=== PATIENT | female | born 1930 | race Caucasian/White ===

== ENCOUNTER 2016-12-26 14:18 | Emergency (ER) | payer OTHER, MEDICARE ==
[~2016-12-26] VITALS: Ht 152.4 cm; Wt 47.0 kg
[~2016-12-26 14:18] MED LIST: BISM262C5 PO; CALC-51 PO; DRAMAMINE PO; GLC/500 PO; IBUP-103 PO; IMD/2 PO; LEVO100T PO; LEVO1TAB33 PO; LISI-461 PO; MULT-506 PO; SIMV40TA4 PO; TRAM-10 PO; TRAZ50TA35 PO; VITAMIN B12 PO; VITAMIN D PO; iron PO
[2016-12-26 14:28] VITALS: TEMP 36.9; O2SAT 95; Ht 152.4 cm; Wt 47.0 kg
[2016-12-26] MEDS ORDERED: ONDANSETRON INJ 2 MG/ML 2 ML VIAL IV STA (14:40)
[2016-12-26] MEDS ORDERED: SODIUM CHLORIDE 0.9% 500ML 500 ML IV STA (14:43)
--- NOTE | 2016-12-26 14:48 | EMERGENCY ROOM VISIT NOTE ---
History Report prepared by Jourdan: Alison Castro Under the Supervision of: Jones GusmanO. First contact with patient: 14:36 Chief Complaint: DIZZY Stated Complaint: WEAK/DIZZY History of Present Illness The patient is a 86 year old female who presents to the Emergency Room with complaints of dizziness. The patient has had intermittent symptoms for the last year. She has seen her primary care physician for this in the past. She's tried taking meclizine but cannot tolerate it anymore and listed as an allergy. She states her symptoms are worsened with any ambulation and feels as though she is falling to the side. She denies having any shortness of breath but does state that at times she does have exertional chest pain. She has not told her doctor this. She was started on cough medicine and states that it does not work anymore although at this time she denies having any cough symptoms. She denies any swelling in the legs. She does complain of a headache which is diffuse and is moderate. She states she has no headache at this time and did not take any medicines for this. She denies having any falls or any injuries. She lives at home alone and called EMS to bring her to the emergency department because of weakness and dizziness. She denies having any dysuria or frequency. She's not had a recent fever. Source of History: patient Position: other (global) Quality: other (dizziness) Timing: intermittent Modifying Factors (Worsening): other (ambulation) Associated Symptoms: + chest pain, + headache, + weakness, No SOB, No cough , No fevers Review of Systems See HPI for pertinent positives & negatives. A total of 10 systems reviewed and were otherwise negative. Past Medical & Surgical Medical Problems: (1) Asthma, Unspecified (2) Cataract Nos (3) Diverticulosis Colon (W/O Ment Of Hemorrhage) (4) Hypertension Nos (5) Old Myocardial Infarct (6) Osteoporosis Nos (7) Postsurgical Hypothyroid Family History Patient reports no known family medical history. Social History Smoking Status: Never Smoker Alcohol Use: none Drug Use: none Marital Status: Housing Status: lives alone Occupation Status: unemployed Current/Historical Medications Scheduled Aspirin Enteric Coated (Ecotrin Or Generic), 81 MG PO QAM Cephalexin Monohydrate (Keflex), 500 MG PO QID Cholecalciferol (Vitamin D 1000 Unit), 1,000 INTER.UNIT PO DAILY Cyanocobalamin (Vitamin B-12), 500 MCG PO DAILY Levothyroxine Sodium (Synthroid), 125 MCG PO DAILY Lisinopril (Zestril), 10 MG PO QAM Metformin Hcl Er (Glucophage Er), 500 MG PO QPM Multivitamin (Multivitamin), 1 TAB PO QAM Omeprazole (Prilosec), 20 MG PO QAM Simvastatin (Simvastatin), 20 MG PO QPM Tramadol HCl (Tramadol HCl), 50 MG PO QID Trazodone Hcl (Trazodone), 100 MG PO DAILY Vitamin E (Vitamin E), 1 TAB PO DAILY Scheduled PRN Phenazopyridine HCl (Phenazopyridine HCl), 200 MG PO TID PRN for Bladder pain Triamcinolone Acet (Triamcinolone Acetonide), 1 APPLN TOP TID PRN for RASH Miscellaneous Medications Ferrous Sulfate (Iron), 1 TAB Allergies Coded Allergies: Sulfamethoxazole w/Trimethoprim (Verified Allergy, Severe, ANAPHYLAXIS, 05/03/16) lips swell Aluminum Hydroxide (Verified Allergy, Unknown, UNKNOWN, 12/26/16) Calcium Carbonate (Verified Allergy, Unknown, UNKNOWN, 12/26/16) INFO FROM [facility] Gabapentin (Verified Allergy, Unknown, UNKNOWN, 12/26/16) INFO FROM [facility] Magnesium Hydroxide (Verified Allergy, Unknown, UNKNOWN, 12/26/16) Propoxyphene (Verified Allergy, Unknown, UNKNOWN, 05/03/16) Simethicone (Verified Allergy, Unknown, UNKNOWN, 12/26/16) Famotidine (Verified Adverse Reaction, Severe, GI SYMPTOMS, 05/03/16) diarrhea Sertraline (Verified Adverse Reaction, Severe, SHORTNESS OF BREATH, 05/03/16 ) no sob,causes dizziness Meclizine (Verified Adverse Reaction, Intermediate, SHORTNESS OF BREATH, ) increased fatigue, no sob Ranitidine (Verified Adverse Reaction, Intermediate, GI SYMPTOMS, 05/03/16) constipated Sulfamethoxazole (Verified Adverse Reaction, Intermediate, SWOLLEN LIPS, PRURITIS, 05/03/16) SWOLLEN LIPS, SLIGHT PRURITIS. See ADR documentation. Verapamil (Verified Adverse Reaction, Intermediate, SHORTNESS OF BREATH, ) no sob,has headaches Albuterol (Verified Adverse Reaction, Mild, SHORTNESS OF BREATH, 05/03/16) no sob, causes cough Alendronate (Verified Adverse Reaction, Mild, UPSET STOMACH, 05/03/16) UPSET STOMACH Ipratropium (Verified Adverse Reaction, Mild, SHORTNESS OF BREATH, 05/03/16) no sob, causes cough Lecithin (Verified Adverse Reaction, Mild, SHORTNESS OF BREATH, 05/03/16) no sob, causes cough Physical Exam Vital Signs Date Time Temp Pulse Resp B/P Pulse Ox O2 Delivery O2 Flow Rate FiO2 12/26/16 17:48 102 18 130/95 98 Room Air 12/26/16 16:28 90 20 138/82 98 12/26/16 15:11 95 18 139/91 100 Room Air 12/26/16 14:56 90 120/76 99 126/68 105 143/71 12/26/16 14:28 96 Room Air 12/26/16 14:28 95 Room Air 12/26/16 14:28 36.9 102 18 149/67 95 Room Air 12/26/16 14:26 127 Physical Exam GENERAL: Patient is awake and alert. She is comfortable and does not appear to be in pain. EYES: The conjunctivae are clear. The pupils are round and reactive. No nystatin this was noted. EARS, NOSE, MOUTH AND THROAT: The nose is without any evidence of any deformity. Mucous membranes are moist tongue is midline NECK: The neck is nontender and supple. RESPIRATORY: Normal respiratory effort is noted there is no evidence of wheezing rhonchi or rales CARDIOVASCULAR: Tachycardic rate with regular rhythm was noted. No definite murmurs noted. GASTROINTESTINAL: The abdomen is soft. Bowel sounds are present in all quadrants. Abdomen is nontender MUSCULOSKELETAL/EXTREMITIES: There is no evidence of gross deformity full range of motion is noted in the hips and shoulders SKIN: There is no obvious evidence of any rash. There are no petechiae, pallor or cyanosis noted. NEUROLOGIC: Patient is awake alert and oriented x3. Strength is symmetric. Patellar tendon reflexes 1 plus bilaterally. Medical Decision & Procedures ER Provider Diagnostic Interpretation: X ray results and stated below per my interpretation and radiology interpretation. CT results per my review and radiologist interpretation: CHEST ONE VIEW PORTABLE HISTORY: EVALUATE ALTERED MENTAL STATUS/WEAKNESS COMPARISON: Chest 05/03/2016. FINDINGS: The lungs are clear. Cardiac silhouette is normal in size. No pleural effusions. No pneumothorax. Mild emphysema persists. IMPRESSION: No significant change compared to the prior study. No acute process. Electronically signed by: Ramos Smith M.D. 12/26/2016 3:01 PM Dictated Date/Time: 12/26/2016 2:[address] CT DOSE: 537.48 mGy.cm HISTORY: EVALUATE ALTERED MENTAL STATUS/WEAKNESS TECHNIQUE: Multiaxial CT images of the head were performed without the use of intravenous contrast. Automated exposure control was utilized for this study. Comparison: Head CT 01/03/2015. Findings: The paranasal sinuses and mastoid air cells are clear. The calvarium and skull base are intact. There is no mass, hematoma, midline shift, acute infarct. White matter hypodensity is nonspecific but suggestive of microvascular ischemic change. The ventricles and sulci demonstrate mild age-related involutional changes. Old postoperative changes within the left mastoid. Vascular calcifications at the skull base. Impression: No significant change compared to the prior study. No acute intracranial abnormality. Electronically signed by: Ramos Smith M.D. 12/26/2016 3:57 PM Dictated Date/Time: 12/26/2016 3:37 PM Laboratory Results 12/26/16 13:30 Red Blood Count 4.94, Mean Corpuscular Volume 88.9, Mean Corpuscular Hemoglobin 28.5, Mean Corpuscular Hemoglobin Concent 32.1, Mean Platelet Volume 9.2, Neutrophils (%) (Auto) 71.1, Lymphocytes (%) (Auto) 21.0, Monocytes (%) (Auto) 6.9, Eosinophils (%) (Auto) 0.6, Basophils (%) (Auto) 0.2, Neutrophils # (Auto) 8.61, Lymphocytes # (Auto) 2.54, Monocytes # (Auto) 0.83, Eosinophils # (Auto) 0.07, Basophils # (Auto) 0.02 12/26/16 13:30 Test 12/26/16 13:30 12/26/16 15:10 White Blood Count 12.10 K/uL (4.8-10.8) Red Blood Count 4.94 M/uL (4.2-5.4) Hemoglobin 14.1 g/dL (12.0-16.0) Hematocrit 43.9 % (37-47) Mean Corpuscular Volume 88.9 fL (80-100) Mean Corpuscular Hemoglobin 28.5 pg (25-34) Mean Corpuscular Hemoglobin Concent 32.1 g/dl (32-36) Platelet Count 255 K/uL (130-400) Mean Platelet Volume 9.2 fL (7.4-10.4) Neutrophils (%) (Auto) 71.1 % Lymphocytes (%) (Auto) 21.0 % Monocytes (%) (Auto) 6.9 % Eosinophils (%) (Auto) 0.6 % Basophils (%) (Auto) 0.2 % Neutrophils # (Auto) 8.61 K/uL (1.4-6.5) Lymphocytes # (Auto) 2.54 K/uL (1.2-3.4) Monocytes # (Auto) 0.83 K/uL (0.11-0.59) Eosinophils # (Auto) 0.07 K/uL (0-0.5) Basophils # (Auto) 0.02 K/uL (0-0.2) RDW Standard Deviation 49.0 fL (36.4-46.3) RDW Coefficient of Variation 15.1 % (11.5-14.5) Immature Granulocyte % (Auto) 0.2 % Immature Granulocyte # (Auto) 0.03 K/uL (0.00-0.02) Prothrombin Time 10.4 SECONDS (9.0-12.0) Prothromb Time International Ratio 1.0 (0.9-1.1) Activated Partial Thromboplast Time 26.1 SECONDS (21.0-31.0) Partial Thromboplastin Ratio 1.0 Anion Gap 12.0 mmol/L (3-11) Est Creatinine Clear Calc Drug Dose 25.1 ml/min Estimated GFR () 48.1 Estimated GFR (Non- 41.5 BUN/Creatinine Ratio 16.8 (10-20) Calcium Level 9.3 mg/dl (8.5-10.1) Magnesium Level 2.0 mg/dl (1.8-2.4) Total Bilirubin 0.4 mg/dl (0.2-1) Direct Bilirubin < 0.1 mg/dl (0-0.2) Aspartate Amino Transf (AST/SGOT) 8 U/L (15-37) Alanine Aminotransferase (ALT/SGPT) 20 U/L (12-78) Alkaline Phosphatase 81 U/L (45-117) Total Creatine Kinase 48 U/L (26-192) Creatine Kinase MB 2.2 ng/ml (0.5-3.6) Creatine Kinase MB Ratio 4.6 (0-3.0) Troponin I 0.025 ng/ml (0-0.045) Total Protein 7.6 gm/dl (6.4-8.2) Albumin 3.9 gm/dl (3.4-5.0) Thyroid Stimulating Hormone (TSH) 0.616 uIu/ml (0.300-4.500) Urine Color DK YELLOW Urine Appearance CLEAR (CLEAR) Urine pH 6.5 (4.5-7.5) Urine Specific Struthers 1.009 (1.000-1.030) Urine Protein NEG (NEG) Urine Glucose (UA) NEG (NEG) Urine Ketones NEG (NEG) Urine Occult Blood NEG (NEG) Urine Nitrite POS (NEG) Urine Bilirubin NEG (NEG) Urine Urobilinogen NEG (NEG) Urine Leukocyte Esterase LARGE (NEG) Urine WBC (Auto) >30 /hpf (0-5) Urine RBC (Auto) 0-4 /hpf (0-4) Urine Hyaline Casts (Auto) 0 /lpf (0-5) Urine Epithelial Cells (Auto) 5-10 /lpf (0-5) Urine Bacteria (Auto) NEG (NEG) Laboratory results per my review. Medications Administered Medications (Trade) Dose Ordered Sig/Jonathan Route Start Time Stop Time Status Last Admin Dose Admin Ondansetron HCl 4 mg 4 mg NOW STAT IV 12/26/16 14:40 12/26/16 15:19 DC 12/26/16 15:10 4 MG Sodium Chloride (Nss 500ml) 500 ml @ 999 mls/hr Q31M STAT IV 12/26/16 14:43 12/26/16 15:19 DC 12/26/16 15:10 999 MLS/HR Ceftriaxone Sodium (Rocephin Inj) 1 gm NOW STAT IV 12/26/16 15:59 12/26/16 16:00 DC 12/26/16 16:28 1 GM ECG Indication: other (Dizziness) Rate (beats per minute): 109 Rhythm: sinus tachycardia Findings: Q waves (Inferior), no ectopy, other (No acute St segment abnormality ) Comparison ECG Date: January 05, 2015 Change: Rate has increased otherwise no change when compared to December 29, 2014. ED Course 1436: The patient was evaluated in room C01A. A complete history and physical examination were performed. 1440: Zofran Inj 4 mg IV 1443: Sodium Chloride 500 ml @ 999 m;s/hr IV 1559: Rocephin Inj 1 gm IV 1620: Upon reevaluation, the patient is resting comfortably. I discussed the results and treatment plan with her. She verbalized agreement of the treatment plan. She was discharged home. Medical Decision Differential diagnosis: Etiologies such as benign positional vertigo, dehydration, hypovolemia, anemia, tumor, infection, hypoglycemia, electrolyte abnormalities, cardiac sources, intracerebral event, toxicologic, neurologic, as well as others were entertained. Nursing notes reviewed. The patient is an 86-year-old female who presented to the emergency department for an evaluation of dizziness. The patient states he has a history of chronic vertigo. She states this feels similar to her previous episodes of vertigo but she does have a headache today. She also feels weak especially upon standing. I discussed the patient's laboratory and radiographic studies with her. She was treated with IV fluids IV antiemetics and IV antibiotics for presumed urinary tract infection and was noted on urinalysis. I discussed follow-up with the patient. She was feeling much better on subsequent reevaluation he requested to be discharged home. I offered to have the patient evaluated by the hospitalist for possible inpatient management especially given her age and the presence of urinary tract infection. She states that she's been treated successfully as an outpatient for urinary tract infection the past. She was encouraged to call her primary care physician to schedule follow-up appointment. I discussed her case with the emergency Department assistant case manager and they've agreed to try to set the patient up with a follow-up appointment with her primary care physician within the next few days. The patient was encouraged to continue all medications as prescribed. She was also encouraged to rest and avoid any strenuous activity. She was also encouraged to return to emergency department immediately if symptoms change worsen or need arises. Impression Primary Impression: Dizziness Additional Impressions: Vertigo UTI (urinary tract infection) Scribe Attestation The scribe's documentation has been prepared under my direction and personally reviewed by me in its entirety. I confirm that the note above accurately reflects all work, treatment, procedures, and medical decision making performed by me. Departure Information Dispostion Home / Self-Care Prescriptions Cephalexin Monohydrate (KEFLEX) 500 Mg Cap 500 MG PO QID, #28 CAP Prov: SidneyDheeraj, DO 12/26/16 Referrals No Doctor, Assigned (PCP) Bi Josue M.D. Forms HOME CARE DOCUMENTATION FORM, IMPORTANT VISIT INFORMATION Patient Instructions My [facility], Urinary Tract Infecs Women Additional Instructions Continue all medications as prescribed. Drink plenty of clear liquids. Rest and avoid any strenuous activity. Use caution with ambulation. Follow-up with your family this week for reevaluation. Be sure to start the antibiotic that was prescribed for the urinary tract infection. Problem Qualifiers
[2016-12-26 14:57] LABS: BASO % 0.2 %; BASO ABS # 0.02 K/uL (0-0.2); COMPLETE YES; EOS % 0.6 %; HEMATOCRIT 43.9 % (37-47); IG% 0.2 %; LYMPH ABS # 2.54 K/uL (1.2-3.4); MEAN CELL VOLUME 88.9 fL (80-100); MEAN CORPUSCULAR HEMOGLOBIN 28.5 pg (25-34); MEAN CORPUSCULAR HGB CONC 32.1 g/dl (32-36); MEAN PLATELET VOLUME 9.2 fL (7.4-10.4); MONO % 6.9 %; NEUT % 71.1 %; PLATELET COUNT 255 K/uL (130-400); RED BLOOD COUNT 4.94 M/uL (4.2-5.4)
--- NOTE | 2016-12-26 15:02 | DIAGNOSTIC IMAGING REPORT ---
CHEST ONE VIEW PORTABLE HISTORY: EVALUATE ALTERED MENTAL STATUS/WEAKNESS COMPARISON: Chest 05/03/2016. FINDINGS: The lungs are clear. Cardiac silhouette is normal in size. No pleural effusions. No pneumothorax. Mild emphysema persists. IMPRESSION: No significant change compared to the prior study. No acute process. Electronically signed by: Ramos Smith M.D. 12/26/2016 3:01 PM Dictated Date/Time: 12/26/2016 2:59 PM
[2016-12-26 15:08] LABS: PROTHROMBIN TIME (PATIENT) 10.4 SECONDS (9.0-12.0)
[2016-12-26 15:18] LABS: ALT/SGPT 20 U/L (12-78); AST/SGOT 8 U/L (15-37); BLOOD UREA NITROGEN 20 mg/dl (7-18); BUN/CREATININE RATIO 16.8 (10-20); CALCIUM 9.3 mg/dl (8.5-10.1); CARBON DIOXIDE 26 mmol/L (21-32); CHLORIDE 104 mmol/L (98-107); GLUCOSE 166 mg/dl (70-99); POTASSIUM 4.1 mmol/L (3.5-5.1); SODIUM 142 mmol/L (136-145)
[2016-12-26 15:29] LABS: ALKALINE PHOSPHATASE 81 U/L (45-117); CKMB/CK RATIO 4.6 (0-3.0); THYROID STIMULATING HORMONE 0.616 uIu/ml (0.300-4.500)
[2016-12-26 15:32] LABS: URINE APPEARANCE CLEAR (CLEAR); URINE BILIRUBIN NEG (NEG); URINE COLOR DK YELLOW; URINE NITRITE POS (NEG); URINE PH 6.5 (4.5-7.5); URINE SPECIFIC GRAVITY 1.009 (1.000-1.030); UROBILINOGEN NEG (NEG)
[2016-12-26] MEDS ORDERED: PHEN-1043 PO (15:33)
[2016-12-26] MEDS ORDERED: ULT50 PO (15:33)
[2016-12-26] MEDS ORDERED: TRMO115 TOP (15:33)
[2016-12-26] MEDS ORDERED: METF500T5 PO (15:33)
[2016-12-26] MEDS ORDERED: SIMV-151 PO (15:33)
[2016-12-26] MEDS ORDERED: LEVO125T72 PO (15:33)
[2016-12-26] MEDS ORDERED: CYAN500T PO (15:33)
[2016-12-26] MEDS ORDERED: TRAZ100T29 PO (15:33)
[2016-12-26] MEDS ORDERED: CHOL100027 PO (15:33)
[2016-12-26 15:34] LABS: MANUAL MICROSCOPIC REQUIRED? NO; REVIEW REQ? NO
[2016-12-26] MEDS ORDERED: VITA1TAB12 PO (15:35)
[2016-12-26] MEDS ORDERED: FERR1TAB61 PO (15:37)
--- NOTE | 2016-12-26 15:58 | DIAGNOSTIC IMAGING REPORT ---
HEAD CT NONCONTRAST CT DOSE: 537.48 mGy.cm HISTORY: EVALUATE ALTERED MENTAL STATUS/WEAKNESS TECHNIQUE: Multiaxial CT images of the head were performed without the use of intravenous contrast. Automated exposure control was utilized for this study. Comparison: Head CT 01/03/2015. Findings: The paranasal sinuses and mastoid air cells are clear. The calvarium and skull base are intact. There is no mass, hematoma, midline shift, acute infarct. White matter hypodensity is nonspecific but suggestive of microvascular ischemic change. The ventricles and sulci demonstrate mild age-related involutional changes. Old postoperative changes within the left mastoid. Vascular calcifications at the skull base. Impression: No significant change compared to the prior study. No acute intracranial abnormality. Electronically signed by: Ramos Smith M.D. 12/26/2016 3:57 PM Dictated Date/Time: 12/26/2016 3:37 PM
[2016-12-26] MEDS ORDERED: CEFTRIAXONE SOD INJ 1 GM ADDVIAL IV STA (15:59)
[2016-12-26] MEDS ORDERED: CEPH500C2 PO (16:42)
[2016-12-26 17:48] VITALS: BP 130/95; PULSE 102; O2SAT 98
[2016-12-26] MEDS ORDERED: ASPI81TA21 PO (18:31)
[2016-12-26] MEDS ORDERED: OMEP20CA9 PO (18:31)
--- NOTE | 2016-12-28 12:25 | Pharmacy Progress Note ---
ED Pharmacist Culture FollowUp Date of Service: Dec 28, 2016. Patient's urine cx from 12/26/16 is growing corynebacterium sp not urealyticum. She had been dx with UTI in the ER and discharged w/ Rx for Keflex 500mg QID x 7 days. No sensitivities will be reported for this organism. This organism would be an unusual cause of UTI, and may likely represent contamination with skin russell. I did speak to the patient and her sister on the phone today. She did c/o dysuria and frequency today which she states she constantly. Her sister confirms that she has had these symptoms for months and attributes them to poor care of pessary device. She states that the device is not removed as frequently as it should be and is not lubricated well when reinserted. She does see Dr Waleska Chin and will be following up with her at the end of the month. She also has a f/u appt with Dr Hyde on 01/03/17. I reviewed the case with Dr Harry, discussed the possibility that this is skin contamination and current symptoms are not new and may be attributed to inadequate pessary care. Suggested that if we needed to treat this organism, perhaps Doxycycline would offer better chance of coverage than Keflex but this is uncertain as our lab does not report sensitivities. Plan is to continue Keflex and have pt f/u with Dr Hyde as scheduled. Plan was relayed to patient 's sister over phone and suggested that they contact Dr Chin regarding recommendations for pessary care routine.
[2017-03-29] MEDS ORDERED: LSN5 PO (16:08)
[2017-04-04] MEDS ORDERED: TRIM100T20 PO (15:36)
== END 2016-12-26 18:18 | disposition home or self-care (01) ==
LOC: EDBD 14:18 → C.EDC 14:18
DX: R42 Dizziness and giddiness (principal); N39.0 Urinary tract infection, site not specified; I10 Essential (primary) hypertension; E89.0 Postprocedural hypothyroidism; J45.909 Unspecified asthma, uncomplicated; M81.0 Age-related osteoporosis without current pathological fracture; K57.90 Diverticulosis of intestine, part unspecified, without perforation or abscess without bleeding; Z79.82 Long term (current) use of aspirin; Z79.899 Other long term (current) drug therapy; Z79.84 Long term (current) use of oral hypoglycemic drugs; Z88.2 Allergy status to sulfonamides; Z88.8 Allergy status to other drugs, medicaments and biological substances

== ENCOUNTER → 2017-01-03 | Outpatient (CLI) | payer OTHER, MEDICARE ==
[~2017-01-03] MED LIST changes: +ASPI81TA21 PO; -BISM262C5 PO; -CALC-51 PO; +CEPH500C2 PO; +CHOL100027 PO; +CYAN500T PO; -DRAMAMINE PO; +DSY/150 PO; +FERR1TAB61 PO; -GLC/500 PO; -IBUP-103 PO; -IMD/2 PO; -LEVO100T PO; +LEVO125T72 PO; -LEVO1TAB33 PO; +LSN5 PO; +METF500T5 PO; +OMEP20CA9 PO; +PHEN-1043 PO; +SIMV-151 PO; -SIMV40TA4 PO; -TRAM-10 PO; +TRAZ100T29 PO; -TRAZ50TA35 PO; +TRIM100T20 PO; +TRMO115 TOP; +ULT50 PO; +VITA1TAB12 PO; -VITAMIN B12 PO; -VITAMIN D PO; -iron PO
== END | disposition home or self-care (01) ==
LOC: C.LABSPEC 17:15
PROVIDERS: ATTEND Podiatrist Foot & Ankle Surgery
DX: L60.0 Ingrowing nail (principal)

== ENCOUNTER 2017-01-08 12:56 | Emergency (ER) | payer OTHER, MEDICARE ==
[~2017-01-08] VITALS: Ht 152.4 cm; Wt 43.7 kg
[~2017-01-08 12:56] MED LIST changes: -DSY/150 PO; -LSN5 PO; -TRIM100T20 PO
[2017-01-08 13:06] VITALS: TEMP 36.4; Ht 152.4 cm; Wt 43.7 kg
[2017-01-08] MEDS ORDERED: SODIUM CHLORIDE 0.9% 1000ML 1,000 ML IV STA (14:04)
[2017-01-08] MEDS ORDERED: SODIUM CHLORIDE 0.9% 1000ML 500 ML IV STA (14:04)
[2017-01-08] MEDS ORDERED: ONDANSETRON INJ 2 MG/ML 2 ML VIAL IV STA (14:04)
[2017-01-08 14:13] VITALS: O2SAT 97
--- NOTE | 2017-01-08 14:41 | DIAGNOSTIC IMAGING REPORT ---
CHEST ONE VIEW PORTABLE CLINICAL HISTORY: Altered mental status. Weakness. COMPARISON STUDY: Chest radiograph April. FINDINGS: There is no pneumothorax or pleural effusion. There are healed left rib fractures. Pulmonary vascularity is normal. Cardiomediastinal silhouette is stable. Pulmonary vascularity is normal. The appearance of the chest is unchanged. IMPRESSION: No acute cardiopulmonary findings. Electronically signed by: Ruddy Seay M.D. 01/08/2017 2:39 PM Dictated Date/Time: 01/08/2017 2:39 PM
[2017-01-08 15:00] LABS: BASO % 0.2 %; BASO ABS # 0.02 K/uL (0-0.2); COMPLETE YES; EOS % 0.3 %; HEMATOCRIT 41.9 % (37-47); IG% 0.5 %; LYMPH ABS # 2.55 K/uL (1.2-3.4); MEAN CELL VOLUME 86.2 fL (80-100); MEAN CORPUSCULAR HGB CONC 33.7 g/dl (32-36); MEAN PLATELET VOLUME 8.6 fL (7.4-10.4); MONO % 5.4 %; NEUT % 64.6 %; PLATELET COUNT 270 K/uL (130-400); RED BLOOD COUNT 4.86 M/uL (4.2-5.4); WHITE BLOOD COUNT 8.78 K/uL (4.8-10.8)
--- NOTE | 2017-01-08 15:02 | EMERGENCY ROOM VISIT NOTE ---
History Report prepared by Jourdan: Seth Urbina Under the Supervision of: Dr. Shabbir Rios M.D. First contact with patient: 13:58 Chief Complaint: WEAKNESS Stated Complaint: AMS/WEAKNESS Nursing Triage Summary: Pt arrives via BLS litter from home for eval of generalized weakness, weight loss, decreased po intake. Pt seen in the ED approx 1.5 weeks ago and d/c to home. Per EMS, pts home is in disarray. Pt has no local family and pt does not feel safe living at home alone. Pt brought here to help with placement. Pt denies pain on arrival. History of Present Illness The patient is an 86 year old female who presents to the Emergency Room via [facility] with complaints of persistent weakness that began roughly two weeks prior to arrival. The patient states that she has been feeling very weak for the past two weeks, and pressed her Medical Alert Button today due to her condition. She is also complaining of nausea and dizziness. The patient feels the need to vomit, but has not had any vomiting episodes yet. She does note having several bouts of diarrhea throughout the night last night. The patient was in the Emergency Department on December 26, 12 days prior to this visit. She was diagnosed with a UTI on this visit and given a prescription of Keflex. Per EMS personnel, the patient's home is in disarray and she is likely unable to continue living on her own. Source of History: patient Onset: Two weeks PAPER TESTER Position: other (Global) Quality: other (Weakness ) Timing: other (Persistent) Associated Symptoms: + diarrhea, + nausea, No vomiting Review of Systems See HPI for pertinent positives & negatives. A total of 10 systems reviewed and were otherwise negative. Past Medical & Surgical Medical Problems: (1) Asthma, Unspecified (2) Cataract Nos (3) Diverticulosis Colon (W/O Ment Of Hemorrhage) (4) Hypertension Nos (5) Old Myocardial Infarct (6) Osteoporosis Nos (7) Postsurgical Hypothyroid Family History Patient reports no known family medical history. Social History Smoking Status: Never Smoker Alcohol Use: none Drug Use: none Marital Status: Housing Status: lives alone Occupation Status: unemployed Current/Historical Medications Scheduled Aspirin Enteric Coated (Ecotrin Or Generic), 81 MG PO QAM Cholecalciferol (Vitamin D 1000 Unit), 1,000 INTER.UNIT PO DAILY Cyanocobalamin (Vitamin B-12), 500 MCG PO DAILY Ferrous Sulfate (Iron), 1 TAB PO DAILY Levothyroxine Sodium (Synthroid), 125 MCG PO DAILY Lisinopril (Zestril), 10 MG PO QAM Metformin Hcl Er (Glucophage Er), 500 MG PO QPM Multivitamin (Multivitamin), 1 TAB PO QAM Omeprazole (Prilosec), 20 MG PO QAM Simvastatin (Simvastatin), 20 MG PO QPM Tramadol HCl (Tramadol HCl), 50 MG PO QID Trazodone Hcl (Trazodone), 100 MG PO DAILY Vitamin E (Vitamin E), 1 TAB PO DAILY Scheduled PRN Phenazopyridine HCl (Phenazopyridine HCl), 200 MG PO TID PRN for Bladder pain Triamcinolone Acet (Triamcinolone Acetonide), 1 APPLN TOP TID PRN for RASH Allergies Coded Allergies: Sulfamethoxazole w/Trimethoprim (Verified Allergy, Severe, ANAPHYLAXIS, 11/12) lips swell Aluminum Hydroxide (Verified Allergy, Unknown, UNKNOWN, 01/08/17) Calcium Carbonate (Verified Allergy, Unknown, UNKNOWN, 01/08/17) INFO FROM [facility] Gabapentin (Verified Allergy, Unknown, UNKNOWN, 01/08/17) INFO FROM [facility] Magnesium Hydroxide (Verified Allergy, Unknown, UNKNOWN, 01/08/17) Propoxyphene (Verified Allergy, Unknown, UNKNOWN, 01/08/17) Simethicone (Verified Allergy, Unknown, UNKNOWN, 01/08/17) Famotidine (Verified Adverse Reaction, Severe, GI SYMPTOMS, 01/08/17) diarrhea Sertraline (Verified Adverse Reaction, Severe, SHORTNESS OF BREATH, ) no sob,causes dizziness Meclizine (Verified Adverse Reaction, Intermediate, SHORTNESS OF BREATH, ) increased fatigue, no sob Ranitidine (Verified Adverse Reaction, Intermediate, GI SYMPTOMS, 01/08/17) constipated Sulfamethoxazole (Verified Adverse Reaction, Intermediate, SWOLLEN LIPS, PRURITIS, 01/08/17) SWOLLEN LIPS, SLIGHT PRURITIS. See ADR documentation. Verapamil (Verified Adverse Reaction, Intermediate, SHORTNESS OF BREATH, ) no sob,has headaches Albuterol (Verified Adverse Reaction, Mild, SHORTNESS OF BREATH, 01/08/17) no sob, causes cough Alendronate (Verified Adverse Reaction, Mild, UPSET STOMACH, 01/08/17) UPSET STOMACH Ipratropium (Verified Adverse Reaction, Mild, SHORTNESS OF BREATH, 01/08/17 ) no sob, causes cough Lecithin (Verified Adverse Reaction, Mild, SHORTNESS OF BREATH, 05/03/16) no sob, causes cough Physical Exam Vital Signs Date Time Temp Pulse Resp B/P Pulse Ox O2 Delivery O2 Flow Rate FiO2 01/08/17 18:33 106 14 171/96 95 01/08/17 17:20 96 165/119 97 Room Air 01/08/17 17:18 100 145/122 98 Room Air 93 184/91 96 165/119 01/08/17 17:09 96 01/08/17 15:19 87 18 161/123 96 Room Air 01/08/17 14:13 97 Room Air 01/08/17 13:08 93 01/08/17 13:06 36.4 92 18 156/87 98 Room Air Physical Exam GENERAL: Patient is in no acute distress. HEENT: No acute trauma, normocephalic atraumatic, mucous membranes dry, no nasal congestion, no scleral icterus. NECK: No stridor, no adenopathy, no meningismus, trachea is midline. LUNGS: Clear to auscultation bilaterally, no wheeze, no rhonchi, breath sounds equal. HEART: Without murmurs gallops or rubs, regular rate and rhythm. ABDOMEN: Soft, nontender, bowel sounds positive, no hernias, no peritonitis. EXTREMITIES: No cyanosis or edema, full range of motion of all the joints without pain or difficulty, no signs for acute trauma. NEUROLOGIC: Oriented x 3, no acute motor or sensory deficits, no focal weakness. SKIN: No rash, no jaundice, no diaphoresis. Medical Decision & Procedures ER Provider Diagnostic Interpretation: X ray results and stated below per my interpretation and radiologist interpretation. Other radiology results and stated below per my review and radiologist interpretation: CHEST ONE VIEW PORTABLE CLINICAL HISTORY: Altered mental status. Weakness. COMPARISON STUDY: Chest radiograph April. FINDINGS: There is no pneumothorax or pleural effusion. There are healed left rib fractures. Pulmonary vascularity is normal. Cardiomediastinal silhouette is stable. Pulmonary vascularity is normal. The appearance of the chest is unchanged. IMPRESSION: No acute cardiopulmonary findings. Electronically signed by: Ruddy Seay M.D. 01/08/2017 2:39 PM Dictated Date/Time: 01/08/2017 2:[address] OF THE HEAD WITHOUT CONTRAST CLINICAL HISTORY: Altered mental status. Weakness. COMPARISON STUDY: Head CT December 26, 2016. CT DOSE: 537.48 mGy.cm TECHNIQUE: Helical axial images of the head were obtained without IV contrast. Automated exposure control was utilized for the study. FINDINGS: No acute intracranial hemorrhage, midline shift or mass effect is present. Ventricular system is stable. Basilar cisterns are patent. There are no extra-axial collections. There are no findings to suggest acute dural sinus thrombosis or acute territorial infarct. Extensive white matter hypodensity suggests small vessel disease. There is no calvarial fracture. An area of mixed lucency and sclerosis within the right parietal bone is unchanged since earlier exams. This is stable since study of December 26, 2006. There are postsurgical findings within the left mastoid air cells. The right mastoid air cells are partially opacified. This is unchanged. IMPRESSION: No acute intracranial findings. No change since previous exam. Electronically signed by: Ruddy Seay M.D. 01/08/2017 4:10 PM Dictated Date/Time: 01/08/2017 4:03 PM Laboratory Results 01/08/17 14:45 Red Blood Count 4.86, Mean Corpuscular Volume 86.2, Mean Corpuscular Hemoglobin 29.0, Mean Corpuscular Hemoglobin Concent 33.7, Mean Platelet Volume 8.6, Neutrophils (%) (Auto) 64.6, Lymphocytes (%) (Auto) 29.0, Monocytes (%) (Auto) 5.4, Eosinophils (%) (Auto) 0.3, Basophils (%) (Auto) 0.2, Neutrophils # (Auto) 5.67, Lymphocytes # (Auto) 2.55, Monocytes # (Auto) 0.47, Eosinophils # (Auto) 0.03, Basophils # (Auto) 0.02 01/08/17 14:45 Test 01/08/17 14:45 01/08/17 15:36 White Blood Count 8.78 K/uL (4.8-10.8) Red Blood Count 4.86 M/uL (4.2-5.4) Hemoglobin 14.1 g/dL (12.0-16.0) Hematocrit 41.9 % (37-47) Mean Corpuscular Volume 86.2 fL (80-100) Mean Corpuscular Hemoglobin 29.0 pg (25-34) Mean Corpuscular Hemoglobin Concent 33.7 g/dl (32-36) Platelet Count 270 K/uL (130-400) Mean Platelet Volume 8.6 fL (7.4-10.4) Neutrophils (%) (Auto) 64.6 % Lymphocytes (%) (Auto) 29.0 % Monocytes (%) (Auto) 5.4 % Eosinophils (%) (Auto) 0.3 % Basophils (%) (Auto) 0.2 % Neutrophils # (Auto) 5.67 K/uL (1.4-6.5) Lymphocytes # (Auto) 2.55 K/uL (1.2-3.4) Monocytes # (Auto) 0.47 K/uL (0.11-0.59) Eosinophils # (Auto) 0.03 K/uL (0-0.5) Basophils # (Auto) 0.02 K/uL (0-0.2) RDW Standard Deviation 46.7 fL (36.4-46.3) RDW Coefficient of Variation 14.7 % (11.5-14.5) Immature Granulocyte % (Auto) 0.5 % Immature Granulocyte # (Auto) 0.04 K/uL (0.00-0.02) Prothrombin Time 11.1 SECONDS (9.0-12.0) Prothromb Time International Ratio 1.0 (0.9-1.1) Activated Partial Thromboplast Time 27.8 SECONDS (21.0-31.0) Partial Thromboplastin Ratio 1.1 Anion Gap 11.0 mmol/L (3-11) Est Creatinine Clear Calc Drug Dose 28.9 ml/min Estimated GFR () 59.9 Estimated GFR (Non- 51.7 BUN/Creatinine Ratio 13.0 (10-20) Calcium Level 9.9 mg/dl (8.5-10.1) Magnesium Level 2.0 mg/dl (1.8-2.4) Total Bilirubin 0.4 mg/dl (0.2-1) Aspartate Amino Transf (AST/SGOT) 15 U/L (15-37) Alanine Aminotransferase (ALT/SGPT) 23 U/L (12-78) Alkaline Phosphatase 76 U/L (45-117) Total Creatine Kinase 41 U/L (26-192) Troponin I 0.021 ng/ml (0-0.045) Total Protein 7.7 gm/dl (6.4-8.2) Albumin 3.8 gm/dl (3.4-5.0) Globulin 3.9 gm/dl (2.5-4.0) Albumin/Globulin Ratio 1.0 (0.9-2) Thyroid Stimulating Hormone (TSH) 0.702 uIu/ml (0.300-4.500) Urine Color YELLOW Urine Appearance CLEAR (CLEAR) Urine pH 6.5 (4.5-7.5) Urine Specific Cutler <= 1.005 (1.000-1.030) Urine Protein NEG (NEG) Urine Glucose (UA) NEG (NEG) Urine Ketones NEG (NEG) Urine Occult Blood NEG (NEG) Urine Nitrite NEG (NEG) Urine Bilirubin NEG (NEG) Urine Urobilinogen NEG (NEG) Urine Leukocyte Esterase NEG (NEG) Laboratory results reviewed by me. Medications Administered Medications (Trade) Dose Ordered Sig/Jonathan Route Start Time Stop Time Status Last Admin Dose Admin Sodium Chloride (Nss 1000ml) 500 ml @ 999 mls/hr Q31M STAT IV 01/08/17 14:04 01/08/17 14:34 DC 01/08/17 14:04 999 MLS/HR Ondansetron HCl 4 mg 4 mg NOW STAT IV 01/08/17 14:04 01/08/17 14:08 DC 01/08/17 14:04 4 MG Sodium Chloride (Nss 1000ml) 1,000 ml @ 200 mls/hr Q5H STAT IV 01/08/17 14:04 01/08/17 19:03 01/08/17 16:27 200 MLS/HR ECG Indication: weakness Rate (beats per minute): 84 Rhythm: normal sinus Findings: no acute ischemic change, no ectopy ED Course 1400: The patient was evaluated in room C8. A complete history and physical exam was performed. 1404: Ordered Sodium Chloride 1000 mL @ 200 mL/hr IV, Zofran 4 mg IV, Sodium Chloride 500 mL @ 999 mL/hr IV. 1632: I checked on the patient at this time, she was resting in bed. We are waiting on the patient's sister to arrive before a disposition is made. 1733: I reevaluated the patient at this time. I discussed results and discharge instructions with the patient and her sister. They do not want to stay in the hospital, and do not want any other tests at this time: They verbalized understanding and agreement. The patient is ready for discharge. Medical Decision Differential Diagnosis include: dehydration, urinary tract infection, electrolyte imbalance, anemia, stroke, intracranial bleeding, dementia, and debilitation. There is no leukocytosis or worrisome anemia. No significant electrolyte abnormality, kidney failure, hepatitis. The patient appears to be in a euthyroid state. Urinalysis does not show evidence for infection. Chest x-ray does not show CHF or pneumonia. Brain CT shows no acute bleed or mass effect. On exam, there were no focal neurologic deficits. The patient was not toxic or febrile. EKG shows a sinus rhythm, no acute ischemia. Cardiac enzyme testing times one is not consistent with acute cardiac injury. Patient received IV saline, she did receive some IV Zofran. She ate a meal here without difficulty. Her sister arrived. I had the patient seen by the case management team. The patient does not want to stay in the hospital, the sister does not feel this is needed. The patient is being discharged back to her home. She does have some services coming into the house already. The office of aging will be contacted tomorrow. They can do a home evaluation this week. If things are worsening, the patient can be returned for reassessment. In short, the patient was dehydrated, she received IV saline, she is doing well and is being discharged home. Impression Primary Impression: Weakness Additional Impression: Dehydration Scribe Attestation The scribe's documentation has been prepared under my direction and personally reviewed by me in its entirety. I confirm that the note above accurately reflects all work, treatment, procedures, and medical decision making performed by me. Departure Information Dispostion Home / Self-Care Referrals No Doctor, Assigned (PCP) Forms HOME CARE DOCUMENTATION FORM, IMPORTANT VISIT INFORMATION Patient Instructions My [facility] Additional Instructions stay well hydrated follow with femi corrales this week for a recheck lab testing today was all ok the office of aging will likely be in touch for a visit this week return if worsening Problem Qualifiers
[2017-01-08 15:11] LABS: PARTIAL THROMBOPLASTIN RATIO 1.1; PROTHROMBIN TIME (PATIENT) 11.1 SECONDS (9.0-12.0)
[2017-01-08 15:17] LABS: CALCIUM 9.9 mg/dl (8.5-10.1); POTASSIUM 4.2 mmol/L (3.5-5.1)
[2017-01-08 15:27] LABS: THYROID STIMULATING HORMONE 0.702 uIu/ml (0.300-4.500)
[2017-01-08 16:03] LABS: MANUAL MICROSCOPIC REQUIRED? NO; URINE APPEARANCE CLEAR (CLEAR); URINE BILIRUBIN NEG (NEG); URINE COLOR YELLOW; URINE NITRITE NEG (NEG); URINE PH 6.5 (4.5-7.5); URINE SPECIFIC GRAVITY <= 1.005 (1.000-1.030); UROBILINOGEN NEG (NEG)
--- NOTE | 2017-01-08 16:11 | DIAGNOSTIC IMAGING REPORT ---
CT OF THE HEAD WITHOUT CONTRAST CLINICAL HISTORY: Altered mental status. Weakness. COMPARISON STUDY: Head CT December 26, 2016. CT DOSE: 537.48 mGy.cm TECHNIQUE: Helical axial images of the head were obtained without IV contrast. Automated exposure control was utilized for the study. FINDINGS: No acute intracranial hemorrhage, midline shift or mass effect is present. Ventricular system is stable. Basilar cisterns are patent. There are no extra-axial collections. There are no findings to suggest acute dural sinus thrombosis or acute territorial infarct. Extensive white matter hypodensity suggests small vessel disease. There is no calvarial fracture. An area of mixed lucency and sclerosis within the right parietal bone is unchanged since earlier exams. This is stable since study of December 26, 2006. There are postsurgical findings within the left mastoid air cells. The right mastoid air cells are partially opacified. This is unchanged. IMPRESSION: No acute intracranial findings. No change since previous exam. Electronically signed by: Ruddy Seay M.D. 01/08/2017 4:10 PM Dictated Date/Time: 01/08/2017 4:03 PM
[2017-01-08 16:13] LABS: REVIEW REQ? NO; ZZURINE CULT IF INDIC CATH NO
[2017-01-08 18:33] VITALS: BP 171/96; PULSE 106; O2SAT 95
[2017-03-29] MEDS ORDERED: LSN5 PO (16:08)
[2017-04-04] MEDS ORDERED: TRIM100T20 PO (15:36)
== END 2017-01-08 18:33 | disposition home or self-care (01) ==
LOC: EDBD 12:56 → C.EDC 12:57
DX: R53.1 Weakness (principal); E86.0 Dehydration; J45.909 Unspecified asthma, uncomplicated; I10 Essential (primary) hypertension; M81.0 Age-related osteoporosis without current pathological fracture; E89.0 Postprocedural hypothyroidism; I25.2 Old myocardial infarction; H26.9 Unspecified cataract; Z87.440 Personal history of urinary (tract) infections; Z79.82 Long term (current) use of aspirin; Z79.899 Other long term (current) drug therapy

== ENCOUNTER 2017-04-04 14:52 | Emergency (ER) | payer OTHER, MEDICARE ==
[~2017-04-04] VITALS: Ht 154.9 cm; Wt 49.1 kg
[~2017-04-04 14:52] MED LIST changes: -ASPI81TA21 PO; -CEPH500C2 PO; -CHOL100027 PO; -CYAN500T PO; -FERR1TAB61 PO; -LISI-461 PO; +LSN5 PO; -METF500T5 PO; -MULT-506 PO; -OMEP20CA9 PO; -PHEN-1043 PO; -TRMO115 TOP; -ULT50 PO; -VITA1TAB12 PO
[2017-04-04 15:02] VITALS: Ht 154.9 cm; Wt 49.1 kg
[2017-04-04] MEDS ORDERED: KETOROLAC TROMETHAMINE 30 MG/ML VIAL IV STA (15:05)
[2017-04-04] MEDS ORDERED: DSY/150 PO (15:36)
[2017-04-04] MEDS ORDERED: TRIM100T2 PO (15:36)
[2017-04-04 15:38] LABS: BASO % 0.3 %; BASO ABS # 0.02 K/uL (0-0.2); COMPLETE YES; EOS % 0.6 %; HEMATOCRIT 40.2 % (37-47); IG% 0.3 %; LYMPH % 28.4 %; MEAN CELL VOLUME 88.2 fL (80-100); MEAN CORPUSCULAR HEMOGLOBIN 28.5 pg (25-34); MEAN CORPUSCULAR HGB CONC 32.3 g/dl (32-36); MEAN PLATELET VOLUME 8.8 fL (7.4-10.4); MONO % 8.3 %; NEUT % 62.1 %; PLATELET COUNT 215 K/uL (130-400); RED BLOOD COUNT 4.56 M/uL (4.2-5.4); WHITE BLOOD COUNT 7.74 K/uL (4.8-10.8)
[2017-04-04 15:56] LABS: BUN/CREATININE RATIO 16.1 (10-20); CALCIUM 8.8 mg/dl (8.5-10.1); CREATININE 0.99 mg/dl (0.60-1.20); POTASSIUM 3.7 mmol/L (3.5-5.1)
--- NOTE | 2017-04-04 16:08 | DIAGNOSTIC IMAGING REPORT ---
LUMBAR SPINE 5 VIEWS HISTORY: Trauma back pain eval for fx COMPARISON: None. FINDINGS: There is no fracture. No subluxation. Considerable degenerative disc changes throughout. This is most prominent from L3 through L5. IMPRESSION: Considerable degenerative change. No acute compression deformity. Electronically signed by: Romario Almaraz M.D. 04/04/2017 4:07 PM Dictated Date/Time: 04/04/2017 4:06 PM
[2017-04-04] MEDS ORDERED: ONDANSETRON INJ 2 MG/ML 2 ML VIAL IV STA (16:20)
[2017-04-04] MEDS ORDERED: MoRPHine SULFATE 4 MG/ML 1 ML CARP\\VIAL IV STA ×2 (16:20→19:19)
[2017-04-04] MEDS ORDERED: LABETALOL HCL IV 5 MG/ML 20ML IV STA (17:15)
--- NOTE | 2017-04-04 17:20 | EMERGENCY ROOM VISIT NOTE ---
History Report prepared by Jourdan: Sharona Hammond Under the Supervision of: Dr. Srinivas Powell M.D. First contact with patient: 14:56 Stated Complaint: BACK PAIN History of Present Illness The patient is an 86 year old female who presents to the Emergency Room with complaints of constant excruciating and aching lower back pain beginning 1 month ago. The patient states that she fell on her buttock more than one month ago and was seen here at the beginning of this month for back pain. Today the patient states that she lives by herself and is having trouble getting around and has been crawling around her home this morning. She reports that she went to Dr. Lamas's office yesterday and he did not give her anything for pain but diagnosed her with something that she can not remember. She notes that she got a shot of pain medication in the ED that helped her pain at the time. The patient complains of leg cramping and leg weakness beginning today. She is not sure if the weakness is secondary to pain. She denies any radiation of the pain to her legs, fever, recent falls, numbness, incontinence, chest pain, shortness of breath, and abdominal pain. She does state that she did not take her blood pressure medicine today. Source of History: patient Onset: 1 month ago Position: back (lower) Symptom Intensity: excruciating Quality: ache Timing: constant Modifying Factors (Relieving): other (shot of pain medication) Associated Symptoms: No abdominal pain, No fevers, No numbness Note: The patient complains of leg cramping and leg weakness beginning today. She denies any radiation of the pain to her legs, recent falls, incontinence. Review of Systems See HPI for pertinent positives & negatives. A total of 10 systems reviewed and were otherwise negative. Past Medical & Surgical Medical Problems: (1) Asthma, Unspecified (2) Cataract Nos (3) Diverticulosis Colon (W/O Ment Of Hemorrhage) (4) Hypertension Nos (5) Old Myocardial Infarct (6) Osteoporosis Nos (7) Postsurgical Hypothyroid Family History Patient reports no known family medical history. Social History Smoking Status: Never Smoker Alcohol Use: none Drug Use: none Marital Status: Housing Status: lives alone Occupation Status: unemployed Current/Historical Medications Scheduled Aspirin Enteric Coated (Ecotrin Or Generic), 81 MG PO QAM Cholecalciferol (Vitamin D 1000 Unit), 1,000 INTER.UNIT PO QAM Ferrous Sulfate (Iron), 1 TAB PO DAILY Levothyroxine Sodium (Synthroid), 125 MCG PO DAILY Metformin Hcl Er (Glucophage Er), 500 MG PO QPM Omeprazole (Prilosec), 20 MG PO QAM Simvastatin (Simvastatin), 20 MG PO QPM Tramadol HCl (Tramadol HCl), 50 MG PO QID Trazodone HCl (Trazodone HCl), 150 MG PO HS Trimethoprim (Proloprim), 100 MG PO DIRECTED Allergies Coded Allergies: Sulfamethoxazole w/Trimethoprim (Verified Allergy, Severe, ANAPHYLAXIS, 11/12) lips swell Aluminum Hydroxide (Verified Allergy, Unknown, UNKNOWN, 01/08/17) Calcium Carbonate (Verified Allergy, Unknown, UNKNOWN, 01/08/17) INFO FROM [facility] Gabapentin (Verified Allergy, Unknown, UNKNOWN, 01/08/17) INFO FROM [facility] Magnesium Hydroxide (Verified Allergy, Unknown, UNKNOWN, 01/08/17) Propoxyphene (Verified Allergy, Unknown, UNKNOWN, 01/08/17) Simethicone (Verified Allergy, Unknown, UNKNOWN, 01/08/17) Famotidine (Verified Adverse Reaction, Severe, GI SYMPTOMS, 01/08/17) diarrhea Sertraline (Verified Adverse Reaction, Severe, SHORTNESS OF BREATH, ) no sob,causes dizziness Meclizine (Verified Adverse Reaction, Intermediate, SHORTNESS OF BREATH, ) increased fatigue, no sob Ranitidine (Verified Adverse Reaction, Intermediate, GI SYMPTOMS, 01/08/17) constipated Sulfamethoxazole (Verified Adverse Reaction, Intermediate, SWOLLEN LIPS, PRURITIS, 01/08/17) SWOLLEN LIPS, SLIGHT PRURITIS. See ADR documentation. Verapamil (Verified Adverse Reaction, Intermediate, SHORTNESS OF BREATH, ) no sob,has headaches Albuterol (Verified Adverse Reaction, Mild, SHORTNESS OF BREATH, 01/08/17) no sob, causes cough Alendronate (Verified Adverse Reaction, Mild, UPSET STOMACH, 01/08/17) UPSET STOMACH Ipratropium (Verified Adverse Reaction, Mild, SHORTNESS OF BREATH, 01/08/17 ) no sob, causes cough Lecithin (Verified Adverse Reaction, Mild, SHORTNESS OF BREATH, 05/03/16) no sob, causes cough Physical Exam Vital Signs Date Time Temp Pulse Resp B/P Pulse Ox O2 Delivery O2 Flow Rate FiO2 04/04/17 18:15 79 18 172/78 93 04/04/17 17:41 20 192/86 95 04/04/17 16:41 211/96 04/04/17 15:02 37.0 81 18 199/102 96 Room Air 04/04/17 14:58 199/102 Physical Exam Constitutional: Vital signs reviewed. Hypertensive. Eyes: Pupils are equal round reactive to light. Conjunctiva are noninjected. ENT: Pharynx is clear without erythema or exudate. Mucous membranes are moist. Neck supple without meningeal signs. Respiratory: Clear to auscultation bilaterally. Breath sounds are equal bilaterally. Cardiovascular: Regular rate and rhythm. No rubs or gallops. GI: Soft, nondistended and nontender. Bowel sounds are present. Musculoskeletal: No peripheral edema. No lower extremity tenderness. Integumentary: No cyanosis. Neurological: The patient is awake and alert. No focal deficits. Normal motor and sensation in the lower extremities. No saddle anesthesia. Psychiatric: Normal affect. Medical Decision & Procedures ER Provider Diagnostic Interpretation: X-ray results as stated below per interpretation by me and the radiologist: LUMBAR SPINE 5 VIEWS FINDINGS: There is no fracture. No subluxation. Considerable degenerative disc changes throughout. This is most prominent from L3 through L5. IMPRESSION: Considerable degenerative change. No acute compression deformity. Electronically signed by: Romario Almaraz M.D. 04/04/2017 4:07 PM Dictated Date/Time: 04/04/2017 4:06 PM Laboratory Results 04/04/17 15:30 Red Blood Count 4.56, Mean Corpuscular Volume 88.2, Mean Corpuscular Hemoglobin 28.5, Mean Corpuscular Hemoglobin Concent 32.3, Mean Platelet Volume 8.8, Neutrophils (%) (Auto) 62.1, Lymphocytes (%) (Auto) 28.4, Monocytes (%) (Auto) 8.3, Eosinophils (%) (Auto) 0.6, Basophils (%) (Auto) 0.3, Neutrophils # (Auto) 4.81, Lymphocytes # (Auto) 2.20, Monocytes # (Auto) 0.64, Eosinophils # (Auto) 0.05, Basophils # (Auto) 0.02 04/04/17 15:30 Test 04/04/17 15:30 White Blood Count 7.74 K/uL (4.8-10.8) Red Blood Count 4.56 M/uL (4.2-5.4) Hemoglobin 13.0 g/dL (12.0-16.0) Hematocrit 40.2 % (37-47) Mean Corpuscular Volume 88.2 fL (80-100) Mean Corpuscular Hemoglobin 28.5 pg (25-34) Mean Corpuscular Hemoglobin Concent 32.3 g/dl (32-36) Platelet Count 215 K/uL (130-400) Mean Platelet Volume 8.8 fL (7.4-10.4) Neutrophils (%) (Auto) 62.1 % Lymphocytes (%) (Auto) 28.4 % Monocytes (%) (Auto) 8.3 % Eosinophils (%) (Auto) 0.6 % Basophils (%) (Auto) 0.3 % Neutrophils # (Auto) 4.81 K/uL (1.4-6.5) Lymphocytes # (Auto) 2.20 K/uL (1.2-3.4) Monocytes # (Auto) 0.64 K/uL (0.11-0.59) Eosinophils # (Auto) 0.05 K/uL (0-0.5) Basophils # (Auto) 0.02 K/uL (0-0.2) RDW Standard Deviation 45.7 fL (36.4-46.3) RDW Coefficient of Variation 14.1 % (11.5-14.5) Immature Granulocyte % (Auto) 0.3 % Immature Granulocyte # (Auto) 0.02 K/uL (0.00-0.02) Anion Gap 6.0 mmol/L (3-11) Est Creatinine Clear Calc Drug Dose 31.9 ml/min Estimated GFR () 60.6 Estimated GFR (Non- 52.3 BUN/Creatinine Ratio 16.1 (10-20) Calcium Level 8.8 mg/dl (8.5-10.1) Laboratory results as reviewed by me. Medications Administered Medications (Trade) Dose Ordered Sig/Jonathan Route Start Time Stop Time Status Last Admin Dose Admin Ketorolac Tromethamine (Toradol Inj) 10 mg NOW STAT IV 04/04/17 15:05 04/04/17 15:07 DC 04/04/17 15:05 10 MG Morphine Sulfate (MoRPHine SULFATE INJ) 4 mg NOW STAT IV 04/04/17 16:20 04/04/17 16:22 DC 04/04/17 16:20 4 MG Ondansetron HCl (Zofran Inj) 4 mg NOW STAT IV 04/04/17 16:20 04/04/17 16:22 DC 04/04/17 16:20 4 MG Labetalol HCl (Normodyne IV) 10 mg NOW STAT IV 04/04/17 17:15 04/04/17 17:16 DC 04/04/17 17:15 10 MG Hydrochlorothiazide (Hydrochlorothiazide Tab) 12.5 mg NOW STAT PO 04/04/17 17:25 04/04/17 17:26 DC 04/04/17 17:25 12.5 MG ED Course 1456: The patient was evaluated in room B11A. A complete history and physical exam was performed. 1505: Toradol Inj 10mg IV. 1618: I reevaluated the patient and she states that she is still having pain. 1620: Zofran Inj 4mg IV, Morphine Sulfate 4mg IV. 1658: I reevaluated the patient. She is still having pain. 1715: Normodyne IV 10mg IV. 1725: Hydrochlorothiazide 12.5mg PO. 1759: I reevaluated the patient and her blood pressure is 164/73. Medical Decision This is an 86-year-old female presents with low back pain for over a month. Differential diagnosis includes lumbar radiculopathy, compression fracture, pathologic fracture, strain, abdominal aortic aneurysm. I did perform a limited focused review of portions of the patient's old chart on the electronic medical record. The patient was seen here on March 29 for low back pain. She had a CT of her abdomen/pelvis and lumbar spine which were negative. She was treated with Toradol and discharged home. I did evaluate the patient as noted above. The patient is presenting with low back pain that she has had for over a month. She was seen here previously for this and had a CT of the abdomen and pelvis and lumbar spine. There is no evidence of abdominal aortic aneurysm. No fractures. She is presenting today with worsening symptoms to the point where she is having difficulty ambulating. She denies any recent injury. She has no signs of cauda equina syndrome or focal neurologic deficit. IV access was established. I did treat the patient with IV Toradol. I did order and personally review the patient's lumbar spine x -rays as described above. I did order and review the patient's blood work as noted in the electronic medical record. I did reassess the patient. She is still having pain and she was given morphine and Zofran IV. On reassessment the pain is better but she still has trouble ambulating or moving. She is also persistently hypertensive. I did therefore treat her with labetalol IV. She does state that she did not take her blood pressure medications today although there is no record of her being on any currently. According to the [employer] tech she was previously on lisinopril. She was also given HCTZ orally. Her blood pressure did improve to 164/73. She is currently being [facility]. If they are unable to take her she will be hospitalized. The patient was signed out to Dr. Little. Impression Primary Impression: Ambulatory dysfunction Additional Impressions: Chronic low back pain without sciatica Poorly-controlled hypertension Scribe Attestation The scribe's documentation has been prepared under my direct and personally reviewed by me in its entirety. I confirm that the note above accurately reflects all work, treatment, procedures, and medical decision making performed by me. Departure Information Dispostion Still a Patient Referrals Bi Josue M.D. (PCP) Problem Qualifiers Additional Impressions: Chronic low back pain without sciatica Back pain laterality: bilateral Qualified Codes: M54.5 - Low back pain; G89.29 - Other chronic pain
[2017-04-04] MEDS ORDERED: HYDROCHLOROTHIAZIDE 25 MG TAB PO STA (17:25)
--- NOTE | 2017-04-04 19:44 | EMERGENCY ROOM VISIT NOTE ---
ED Visit Note First contact with patient: 19:43 I received this patient at change of shift signout from Dr. Powell. Please see his note for complete history and physical. The patient is an 86-year-old female who has a history of low back pain. She has a history of chronic low back pain but presented to the emergency department this evening because of worsening symptoms. The patient was treated in the emergency department but was felt to have continued pain and was felt to be a good candidate for inpatient rehabilitation. She was evaluated by the emergency Department keycase assembler. She is accepted at [facility]. Transfer paperwork was filled out by myself. The patient had no needs while she was under my care.
[2017-04-04 21:08] VITALS: BP 169/80; PULSE 73; TEMP 37; O2SAT 96
[2017-09-07] MEDS ORDERED: METF500T5 PO (15:33)
[2017-09-07] MEDS ORDERED: ULT50 PO (15:33)
[2017-09-07] MEDS ORDERED: CHOL100027 PO (15:33)
[2017-09-07] MEDS ORDERED: FERR1TAB61 PO (15:37)
[2017-09-07] MEDS ORDERED: LEVO125T5 PO (18:25)
== END 2017-04-04 21:07 ==
LOC: EDBD 14:52 → C.EDB 14:54
DX: M54.5 Low back pain (principal); R26.89 Other abnormalities of gait and mobility; I10 Essential (primary) hypertension; Z79.82 Long term (current) use of aspirin; Z79.899 Other long term (current) drug therapy

== ENCOUNTER → 2017-08-17 | Outpatient (CLI) | payer OTHER, MEDICARE ==
[~2017-08-17] MED LIST changes: +ASPI81TA21 PO; +CHOL100027 PO; +DSY/150 PO; +FERR1TAB61 PO; +IBUP-1277 PO; +LEVO125T4 PO; +LPT10 PO; +LSN25 PO; -LSN5 PO; +METF500T5 PO; +OMEP20CA9 PO; -TRAZ100T29 PO; +TRIM100T20 PO; +ULT50 PO
== END | disposition home or self-care (01) ==
LOC: C.LABSPEC 12:08
PROVIDERS: ATTEND Obstetrics & Gynecology
DX: N39.0 Urinary tract infection, site not specified (principal)

== ENCOUNTER → 2017-09-04 | Outpatient (CLI) | payer OTHER, MEDICARE ==
[2017-09-04 18:28] LABS: THYROID STIMULATING HORMONE 2.51 uIu/ml (0.300-4.500)
[2017-09-06 11:12] LABS: C-REACTIVE PROT HIGHSEN 21.1 MG/L
== END | disposition home or self-care (01) ==
LOC: C.LAB1850 16:31
PROVIDERS: ATTEND Student in an Organized Health Care Education/Training Program
DX: R52 Pain, unspecified (principal); R53.81 Other malaise

== ENCOUNTER 2017-09-07 16:53 | Inpatient (IN) | payer OTHER, MEDICARE ==
[~2017-09-07] VITALS: Ht 152.4 cm; Wt 38.0 kg
[~2017-09-07 16:53] MED LIST changes: -ASPI81TA21 PO; -IBUP-1277 PO; -LEVO125T4 PO; -LPT10 PO; -LSN25 PO; -OMEP20CA9 PO
[2017-09-07] MEDS ORDERED: OXYCODONE/ACETAMINOPHEN 5-325 TAB PO STA (17:18)
[2017-09-07] MEDS ORDERED: SODIUM CHLORIDE 0.9% 1000ML 1,000 ML IV STA (17:18)
[2017-09-07 17:44] LABS: URINE APPEARANCE CLEAR (CLEAR); URINE BILIRUBIN NEG (NEG); URINE COLOR YELLOW; URINE NITRITE NEG (NEG); URINE PH 5.5 (4.5-7.5); URINE SPECIFIC GRAVITY 1.012 (1.000-1.030); UROBILINOGEN NEG (NEG); ZZURINE CULT IF INDIC CATH NO
[2017-09-07 17:46] LABS: MANUAL MICROSCOPIC REQUIRED? NO; REVIEW REQ? NO
[2017-09-07 17:56] LABS: BASO % 0.1 %; BASO ABS # 0.01 K/uL (0-0.2); COMPLETE YES; EOS % 0.2 %; HEMATOCRIT 41.3 % (37-47); IG% 0.3 %; LYMPH % 13.7 %; LYMPH ABS # 1.35 K/uL (1.2-3.4); MEAN CELL VOLUME 82.3 fL (80-100); MEAN CORPUSCULAR HEMOGLOBIN 26.1 pg (25-34); MEAN CORPUSCULAR HGB CONC 31.7 g/dl (32-36); MEAN PLATELET VOLUME 8.3 fL (7.4-10.4); MONO % 7.5 %; NEUT % 78.2 %; PLATELET COUNT 247 K/uL (130-400); RED BLOOD COUNT 5.02 M/uL (4.2-5.4); WHITE BLOOD COUNT 9.86 K/uL (4.8-10.8)
[2017-09-07 18:14] LABS: PARTIAL THROMBOPLASTIN RATIO 1.1; PROTHROMBIN TIME (PATIENT) 10.8 SECONDS (9.0-12.0)
[2017-09-07 18:16] LABS: BUN/CREATININE RATIO 13.8 (10-20); CALCIUM 8.8 mg/dl (8.5-10.1); CREATININE 0.74 mg/dl (0.60-1.20); POTASSIUM 3.8 mmol/L (3.5-5.1)
--- NOTE | 2017-09-07 18:16 | DIAGNOSTIC IMAGING REPORT ---
HEAD WITHOUT CONTRAST (CT) CLINICAL HISTORY: 87 years-old Female presenting with EVALUATE ALTERED MENTAL STATUS/WEAKNESS. TECHNIQUE: Multidetector CT imaging of the head was performed without the use of intravenous contrast. IV contrast: None. A dose lowering technique was used consistent with the principles of ALARA (as low as reasonably achievable). COMPARISON: 01/08/2017. CT DOSE (mGy.cm): The estimated cumulative dose is 537.48 mGy.cm. FINDINGS: Cytology Supervisor topogram: Unremarkable. Proportional ventricular and sulcal prominence, likely age-related parenchymal volume loss. Periventricular and subcortical white matter hypoattenuation, nonspecific but likely indicative of chronic small vessel ischemic change. No mass effect or midline shift. No hemorrhage or acute territorial infarct. No extra-axial fluid collection. Mucosal thickening in the right maxillary sinus. Unchanged appearance of the right parietal bone. Postsurgical changes of the left mastoid air cells. Trace fluid in right mastoid air cells. Bilateral ho-chunk lenses are absent. IMPRESSION: 1. No acute intracranial pathology. 2. Extensive chronic small vessel ischemic change. Electronically signed by: López Larson M.D. 09/07/2017 6:15 PM Dictated Date/Time: 09/07/2017 6:11 PM
[2017-09-07] MEDS ORDERED: LSN25 PO (18:25)
[2017-09-07] MEDS ORDERED: LEVO125T4 PO (18:25)
[2017-09-07] MEDS ORDERED: LPT10 PO (18:25)
[2017-09-07] MEDS ORDERED: ASPI81TA21 PO (18:31)
[2017-09-07] MEDS ORDERED: OMEP20CA9 PO (18:31)
[2017-09-07 18:33] LABS: CKMB/CK RATIO 2.7 (0-3.0)
[2017-09-07] MEDS ORDERED: IBUP-1277 PO (18:33)
--- NOTE | 2017-09-07 18:41 | DIAGNOSTIC IMAGING REPORT ---
PELVIS 1 OR 2 VIEW ROUTINE CLINICAL HISTORY: 87 years-old Female presenting with fall. TECHNIQUE: Single frontal view the pelvis was obtained. COMPARISON: CT from 03/29/2017. FINDINGS: Osteopenia. Sacroiliac joints, hip joints, and pubic symphysis congruent. No acute fracture of the bony pelvis or femoral necks. Arcuate lines intact. Degenerative changes of lower lumbar spine. Atherosclerosis. Nonobstructive bowel gas pattern. IMPRESSION: No acute osseous injury of the pelvis. Electronically signed by: López Larson M.D. 09/07/2017 6:40 PM Dictated Date/Time: 09/07/2017 6:39 PM
--- NOTE | 2017-09-07 18:43 | DIAGNOSTIC IMAGING REPORT ---
CHEST ONE VIEW PORTABLE CLINICAL HISTORY: 87 years-old Female presenting with EVALUATE ALTERED MENTAL STATUS/WEAKNESS. TECHNIQUE: Portable upright AP view of the chest was obtained. COMPARISON: 03/29/2017. FINDINGS: Atherosclerosis of aortic arch. Cardiac silhouette mildly enlarged, unchanged. Hyperinflation of the lungs also unchanged. No focal infiltrate. No pleural effusion or pneumothorax. Osteopenia may be present. Upper abdomen normal. IMPRESSION: 1. Hyperinflation suggests underlying emphysema. No focal infiltrate. 2. Mild cardiomegaly, unchanged. Electronically signed by: López Larson M.D. 09/07/2017 6:41 PM Dictated Date/Time: 09/07/2017 6:40 PM
[2017-09-07] MEDS ORDERED: ASPIRIN 81 MG CHEW PO STA (18:59)
--- NOTE | 2017-09-07 18:59 | EMERGENCY ROOM VISIT NOTE ---
History Report prepared by Jourdan: Janine Bajwa Under the Supervision of: Dr. Vladimir Harry D.O. First contact with patient: 17:09 Chief Complaint: FALL Stated Complaint: FALL/DIZZY/ EVAL History of Present Illness The patient is an 87 year old female who presents to the Emergency Room with complaints of an episode of fall around 1100 today. The patient was opening the fridge when she fell onto the floor. She was on the floor until the cleaning lady came around 1 hour ago. She was unable to get up herself. She did hit the left side of her head. She denies any LOC. She attributes her fall to the pain she is having pain from her knees up to her neck and down to her elbows. She reports that this is her arthritis pain. It has been worsening recently, especially today which she attributes to the bad weather today. She usually uses a walker to get around. She feels that she is too weak to go home. She spoke with her PCP yesterday and asked for pain medications, but they did not feel comfortable starting her on pain medications due to her history of dizziness. The patient lives alone at home. She states that she does not eat well. She has been taking ibuprofen and tramadol for her pain. She reports dysuria. Source of History: patient, nursing staff Onset: 1100 Position: other (global) Quality: other (fall) Timing: other (episodic) Associated Symptoms: + neck pain, + urinary symptoms, + weakness, No LOC Note: Pt reports knee pain, elbow pain. Review of Systems See HPI for pertinent positives & negatives. A total of 10 systems reviewed and were otherwise negative. Past Medical & Surgical Medical Problems: (1) Asthma, Unspecified (2) Cataract Nos (3) Diverticulosis Colon (W/O Ment Of Hemorrhage) (4) Hypertension Nos (5) Old Myocardial Infarct (6) Osteoporosis Nos (7) Postsurgical Hypothyroid Family History Patient reports no known family medical history. Social History Smoking Status: Never Smoker Alcohol Use: none Drug Use: none Marital Status: Housing Status: lives alone Occupation Status: unemployed Current/Historical Medications Scheduled Aspirin Enteric Coated (Ecotrin Or Generic), 81 MG PO QAM Atorvastatin (Atorvastatin Calcium), 10 MG PO HOLD Cholecalciferol (Vitamin D 1000 Unit), 1,000 INTER.UNIT PO QAM Ferrous Sulfate (Iron), 1 TAB PO DAILY Ibuprofen (Advil), 400 MG PO HS Levothyroxine Sodium (Levothyroxine Sodium), 125 MCG PO DAILY Lisinopril (Lisinopril), 2.5 MG PO DAILY Metformin Hcl Er (Glucophage Er), 500 MG PO QPM Omeprazole (Prilosec), 20 MG PO QAM Tramadol HCl (Tramadol HCl), 50 MG PO QID Allergies Coded Allergies: Sulfamethoxazole w/Trimethoprim (Verified Allergy, Severe, ANAPHYLAXIS, 11/12) lips swell Aluminum Hydroxide (Verified Allergy, Unknown, UNKNOWN, 01/08/17) Calcium Carbonate (Verified Allergy, Unknown, UNKNOWN, 01/08/17) INFO FROM [facility] Gabapentin (Verified Allergy, Unknown, UNKNOWN, 01/08/17) INFO FROM [facility] Magnesium Hydroxide (Verified Allergy, Unknown, UNKNOWN, 01/08/17) Propoxyphene (Verified Allergy, Unknown, UNKNOWN, 01/08/17) Simethicone (Verified Allergy, Unknown, UNKNOWN, 01/08/17) Famotidine (Verified Adverse Reaction, Severe, GI SYMPTOMS, 01/08/17) diarrhea Sertraline (Verified Adverse Reaction, Severe, SHORTNESS OF BREATH, ) no sob,causes dizziness Meclizine (Verified Adverse Reaction, Intermediate, SHORTNESS OF BREATH, ) increased fatigue, no sob Ranitidine (Verified Adverse Reaction, Intermediate, GI SYMPTOMS, 01/08/17) constipated Sulfamethoxazole (Verified Adverse Reaction, Intermediate, SWOLLEN LIPS, PRURITIS, 01/08/17) SWOLLEN LIPS, SLIGHT PRURITIS. See ADR documentation. Verapamil (Verified Adverse Reaction, Intermediate, SHORTNESS OF BREATH, ) no sob,has headaches Albuterol (Verified Adverse Reaction, Mild, SHORTNESS OF BREATH, 01/08/17) no sob, causes cough Alendronate (Verified Adverse Reaction, Mild, UPSET STOMACH, 01/08/17) UPSET STOMACH Ipratropium (Verified Adverse Reaction, Mild, SHORTNESS OF BREATH, 01/08/17 ) no sob, causes cough Lecithin (Verified Adverse Reaction, Mild, SHORTNESS OF BREATH, 05/03/16) no sob, causes cough Physical Exam Vital Signs Date Time Temp Pulse Resp B/P (MAP) Pulse Ox O2 Delivery O2 Flow Rate FiO2 09/07/17 18:58 89 20 181/86 98 Room Air 09/07/17 17:37 92 09/07/17 17:03 36.7 95 16 189/102 97 Room Air Physical Exam CONSTITUTIONAL/VITAL SIGNS: Reviewed / noted above. GENERAL: Non-toxic in appearance. INTEGUMENTARY: Warm, dry, and [place]. HEAD: Normocephalic. EYES: without scleral icterus or trauma. ENT/OROPHARYNX: clear and moist. LYMPHADENOPATHY/NECK: Is supple without lymphadenopathy or meningismus. RESPIRATORY: Lungs clear and equal. CARDIOVASCULAR: Regular rate and rhythm. GI/ABDOMEN: Soft and nontender. No organomegaly or pulsatile mass. No rebound or guarding. Normal bowel sounds. EXTREMITIES: Warm and well perfused. BACK: No CVA tenderness. NEUROLOGICAL: Intact without focal deficits. PSYCHIATRIC: normal affect. MUSCULOSKELETAL: Normally developed with good muscle tone. Medical Decision & Procedures ER Provider Diagnostic Interpretation: X ray results and stated below per my interpretation and radiology interpretation. Radiology results as stated below per my review and radiologist interpretation: CHEST ONE VIEW PORTABLE CLINICAL HISTORY: 87 years-old Female presenting with EVALUATE ALTERED MENTAL STATUS/WEAKNESS. TECHNIQUE: Portable upright AP view of the chest was obtained. COMPARISON: 03/29/2017. FINDINGS: Atherosclerosis of aortic arch. Cardiac silhouette mildly enlarged, unchanged. Hyperinflation of the lungs also unchanged. No focal infiltrate. No pleural effusion or pneumothorax. Osteopenia may be present. Upper abdomen normal. IMPRESSION: 1. Hyperinflation suggests underlying emphysema. No focal infiltrate. 2. Mild cardiomegaly, unchanged. Electronically signed by: López Larson M.D. 09/07/2017 6:41 PM Dictated Date/Time: 09/07/2017 6:40 PM PELVIS 1 OR 2 VIEW ROUTINE CLINICAL HISTORY: 87 years-old Female presenting with fall. TECHNIQUE: Single frontal view the pelvis was obtained. COMPARISON: CT from 03/29/2017. FINDINGS: Osteopenia. Sacroiliac joints, hip joints, and pubic symphysis congruent. No acute fracture of the bony pelvis or femoral necks. Arcuate lines intact. Degenerative changes of lower lumbar spine. Atherosclerosis. Nonobstructive bowel gas pattern. IMPRESSION: No acute osseous injury of the pelvis. Electronically signed by: López Larson M.D. 09/07/2017 6:40 PM Dictated Date/Time: 09/07/2017 6:39 PM HEAD WITHOUT CONTRAST (CT) CLINICAL HISTORY: 87 years-old Female presenting with EVALUATE ALTERED MENTAL STATUS/WEAKNESS. TECHNIQUE: Multidetector CT imaging of the head was performed without the use of intravenous contrast. IV contrast: None. A dose lowering technique was used consistent with the principles of ALARA (as low as reasonably achievable). COMPARISON: 01/08/2017. CT DOSE (mGy.cm): The estimated cumulative dose is 537.48 mGy.cm. FINDINGS: Curtain Worker topogram: Unremarkable. Proportional ventricular and sulcal prominence, likely age-related parenchymal volume loss. Periventricular and subcortical white matter hypoattenuation, nonspecific but likely indicative of chronic small vessel ischemic change. No mass effect or midline shift. No hemorrhage or acute territorial infarct. No extra-axial fluid collection. Mucosal thickening in the right maxillary sinus. Unchanged appearance of the right parietal bone. Postsurgical changes of the left mastoid air cells. Trace fluid in right mastoid air cells. Bilateral algaaciq lenses are absent. IMPRESSION: 1. No acute intracranial pathology. 2. Extensive chronic small vessel ischemic change. Electronically signed by: López Larson M.D. 09/07/2017 6:15 PM Dictated Date/Time: 09/07/2017 6:11 PM Laboratory Results 09/07/17 17:40 Red Blood Count 5.02, Mean Corpuscular Volume 82.3, Mean Corpuscular Hemoglobin 26.1, Mean Corpuscular Hemoglobin Concent 31.7, Mean Platelet Volume 8.3, Neutrophils (%) (Auto) 78.2, Lymphocytes (%) (Auto) 13.7, Monocytes (%) (Auto) 7.5, Eosinophils (%) (Auto) 0.2, Basophils (%) (Auto) 0.1, Neutrophils # (Auto) 7.71, Lymphocytes # (Auto) 1.35, Monocytes # (Auto) 0.74, Eosinophils # (Auto) 0.02, Basophils # (Auto) 0.01 09/07/17 17:40 Test 09/07/17 17:25 09/07/17 17:40 Urine Color YELLOW Urine Appearance CLEAR (CLEAR) Urine pH 5.5 (4.5-7.5) Urine Specific [place] 1.012 (1.000-1.030) Urine Protein NEG (NEG) Urine Glucose (UA) NEG (NEG) Urine Ketones NEG (NEG) Urine Occult Blood NEG (NEG) Urine Nitrite NEG (NEG) Urine Bilirubin NEG (NEG) Urine Urobilinogen NEG (NEG) Urine Leukocyte Esterase NEG (NEG) Urine WBC (Auto) 1-5 /hpf (0-5) Urine RBC (Auto) 0-4 /hpf (0-4) Urine Hyaline Casts (Auto) 1-5 /lpf (0-5) Urine Epithelial Cells (Auto) 10-20 /lpf (0-5) Urine Bacteria (Auto) NEG (NEG) White Blood Count 9.86 K/uL (4.8-10.8) Red Blood Count 5.02 M/uL (4.2-5.4) Hemoglobin 13.1 g/dL (12.0-16.0) Hematocrit 41.3 % (37-47) Mean Corpuscular Volume 82.3 fL (80-100) Mean Corpuscular Hemoglobin 26.1 pg (25-34) Mean Corpuscular Hemoglobin Concent 31.7 g/dl (32-36) Platelet Count 247 K/uL (130-400) Mean Platelet Volume 8.3 fL (7.4-10.4) Neutrophils (%) (Auto) 78.2 % Lymphocytes (%) (Auto) 13.7 % Monocytes (%) (Auto) 7.5 % Eosinophils (%) (Auto) 0.2 % Basophils (%) (Auto) 0.1 % Neutrophils # (Auto) 7.71 K/uL (1.4-6.5) Lymphocytes # (Auto) 1.35 K/uL (1.2-3.4) Monocytes # (Auto) 0.74 K/uL (0.11-0.59) Eosinophils # (Auto) 0.02 K/uL (0-0.5) Basophils # (Auto) 0.01 K/uL (0-0.2) RDW Standard Deviation 41.3 fL (36.4-46.3) RDW Coefficient of Variation 13.8 % (11.5-14.5) Immature Granulocyte % (Auto) 0.3 % Immature Granulocyte # (Auto) 0.03 K/uL (0.00-0.02) Prothrombin Time 10.8 SECONDS (9.0-12.0) Prothromb Time International Ratio 1.0 (0.9-1.1) Activated Partial Thromboplast Time 29.2 SECONDS (21.0-31.0) Partial Thromboplastin Ratio 1.1 Anion Gap 7.0 mmol/L (3-11) Est Creatinine Clear Calc Drug Dose 39.9 ml/min Estimated GFR () 85.6 Estimated GFR (Non- 73.9 BUN/Creatinine Ratio 13.8 (10-20) Calcium Level 8.8 mg/dl (8.5-10.1) Total Creatine Kinase 186 U/L (26-192) Creatine Kinase MB 5.0 ng/ml (0.5-3.6) Creatine Kinase MB Ratio 2.7 (0-3.0) Troponin I 0.118 ng/ml (0-0.045) Laboratory results as stated above per my review. Medications Administered Medications (Trade) Dose Ordered Sig/Jonathan Route Start Time Stop Time Status Last Admin Dose Admin Sodium Chloride 1,000 ml @ 150 mls/hr Q6H40M STAT IV 09/07/17 17:18 09/07/17 23:57 09/07/17 18:00 150 MLS/HR Oxycodone/ Acetaminophen (Percocet 5-325mg Tab) 1 tab NOW STAT PO 09/07/17 17:18 09/07/17 17:22 DC 09/07/17 17:38 1 TAB Aspirin (Aspirin Chew) 324 mg NOW STAT PO 09/07/17 18:59 09/07/17 19:00 DC 09/07/17 19:03 324 MG ECG Indication: weakness Rate (beats per minute): 89 Rhythm: sinus rhythm Findings: PVC, other (no acute injury) ED Course 1711: Previous medical records were reviewed. The patient was evaluated in room A10. A complete history and physical examination was performed. 1718: Oxycodone/Acetaminophen 1 tab PO, NSS 1000 ml @ 150 mls/hr IV. 1850: I discussed the patient's case with Dr. Stern, [facility] hospitalist. The patient will be evaluated for further treatment and disposition. 1854: On reevaluation, the patient is resting comfortably. I discussed the results and findings with her. She verbalized agreement of the treatment plan. The patient will be evaluated for further management and care. Medical Decision Differential includes acute coronary syndrome, myocardial infarction, CVA, TIA, anemia, infection, pneumonia, UTI, pyelonephritis, poor nutrition, dehydration, electrolyte disturbance,hypoglycemia. This is an 87-year-old female who presents to the ED with a chief complaint of generalized weakness. The patient states that she fell today while opening up her refrigerator. She states that she lives alone. She denied having any specific chest pains or shortness of breath. She states that she just feels overall weak and feels that she cannot ambulate effectively. She does use a walker. The patient states that she was laying on the floor between 11 AM and 4 PM until a friend came over to check on her. She reports that she hit her head. The patient's physical exam did not reveal any obvious trauma. She is neurologically intact. Her initial blood pressure was elevated at 189/102. EKG shows a sinus rhythm at a rate of 89. Her CBC is normal. Troponin was elevated at 0.118. Urine did not show infection. X-ray of the chest and pelvis did not show any acute process. A CT scan of the brain did not show acute process. I spoke with Dr. Perez about the patient. The patient will be seen for further inpatient evaluation and care. She was treated with aspirin by mouth. Medication Reconcilliation Current Medication List: was personally reviewed by me Blood Pressure Screening Patient's blood pressure: Elevated blood pressure Blood pressure disposition: Referred to PCP Consults Time Called: 1844 Consulting Physician: Dr. Stern, [facility] hospitalist Returned Call: [phone] Discussed the patient's case. The patient will be evaluated for further treatment and disposition. Impression Primary Impression: NSTEMI (non-ST elevated myocardial infarction) Additional Impressions: Weakness Fall Scribe Attestation The scribe's documentation has been prepared under my direction and personally reviewed by me in its entirety. I confirm that the note above accurately reflects all work, treatment, procedures, and medical decision making performed by me. Departure Information Dispostion Being Evaluated By Hospitalist Bi Ulloa M.D. (PCP) Patient Instructions My [facility] Problem Qualifiers
[2017-09-07] MEDS ORDERED: POLYETHYLENE (MIRALAX) 17 GM PACK PO PRN (20:15)
[2017-09-07] MEDS ORDERED: ONDANSETRON INJ 2 MG/ML 2 ML VIAL IV PRN (20:15)
--- NOTE | 2017-09-07 20:15 | History and Physical ---
History & Physical Date & Time of Service: Sep 07, 2017 at 20:15 Chief Complaint: Fall/Dizzy/ Eval Primary Care Physician: Bi Josue M.D. History of Present Illness Source: patient Ms Galicia is an 87 yo F pt of Dr. Josue who presents today after a fall around 11am today. She lives at home alone in [place]. She reports she was going to the refrigerator to get some fruit, and somehow felt the handle slip away from her and she fell with it. She was unable to get up on her own, and someone found her a few hours later. She denied hitting her head or LOC. She reports pain from head to toe, worst in the L shoulder. She had Percocet which did not touch the pain. She was found to have a slightly elevated troponin. She denies ever having an AR in the past, and denies any recent chest pain or shortness of breath. She reports her arthritis is so severe it is causing lots of issues for her. She has caretakers that come in every few days, and her good friend Little comes in frequently as well. Her nearest sister is in [place]. Past Medical/Surgical History Medical Problems: 1) Hypothyroidism 2) TIA 3) HTN 4) DM II 5) Peripheral vascular disease - RLE revascularization 6) Osteoporosis 7) Vitamin D deficiency 8) Hyperlipidemia 9) Osteomyelitis RLE Family History Patient reports no known family medical history. Arthritis in parents. No other contributory family hx. Social History Smoking Status: Never Smoker Drug Use: none Marital Status: Occupational Status: retired Immunizations History of Influenza Vaccine: Yes History of Tetanus Vaccine?: Yes History of Pneumococcal: Yes History of Hepatitis B Vaccine: No Multi-Drug Resistant Organisms History of MDRO: No Allergies Coded Allergies: Sulfamethoxazole w/Trimethoprim (Verified Allergy, Severe, ANAPHYLAXIS, 11/12) lips swell Aluminum Hydroxide (Verified Allergy, Unknown, UNKNOWN, 01/08/17) Calcium Carbonate (Verified Allergy, Unknown, UNKNOWN, 01/08/17) INFO FROM [facility] Gabapentin (Verified Allergy, Unknown, UNKNOWN, 01/08/17) INFO FROM [facility] Magnesium Hydroxide (Verified Allergy, Unknown, UNKNOWN, 01/08/17) Propoxyphene (Verified Allergy, Unknown, UNKNOWN, 01/08/17) Simethicone (Verified Allergy, Unknown, UNKNOWN, 01/08/17) Famotidine (Verified Adverse Reaction, Severe, GI SYMPTOMS, 01/08/17) diarrhea Sertraline (Verified Adverse Reaction, Severe, SHORTNESS OF BREATH, ) no sob,causes dizziness Meclizine (Verified Adverse Reaction, Intermediate, SHORTNESS OF BREATH, ) increased fatigue, no sob Ranitidine (Verified Adverse Reaction, Intermediate, GI SYMPTOMS, 01/08/17) constipated Sulfamethoxazole (Verified Adverse Reaction, Intermediate, SWOLLEN LIPS, PRURITIS, 01/08/17) SWOLLEN LIPS, SLIGHT PRURITIS. See ADR documentation. Verapamil (Verified Adverse Reaction, Intermediate, SHORTNESS OF BREATH, ) no sob,has headaches Albuterol (Verified Adverse Reaction, Mild, SHORTNESS OF BREATH, 01/08/17) no sob, causes cough Alendronate (Verified Adverse Reaction, Mild, UPSET STOMACH, 01/08/17) UPSET STOMACH Ipratropium (Verified Adverse Reaction, Mild, SHORTNESS OF BREATH, 01/08/17 ) no sob, causes cough Lecithin (Verified Adverse Reaction, Mild, SHORTNESS OF BREATH, 05/03/16) no sob, causes cough Home Medications Scheduled Aspirin Enteric Coated (Ecotrin Or Generic), 81 MG PO QAM Atorvastatin (Atorvastatin Calcium), 10 MG PO HOLD Cholecalciferol (Vitamin D 1000 Unit), 1,000 INTER.UNIT PO QAM Ferrous Sulfate (Iron), 1 TAB PO DAILY Ibuprofen (Advil), 400 MG PO HS Levothyroxine Sodium (Levothyroxine Sodium), 125 MCG PO DAILY Lisinopril (Lisinopril), 2.5 MG PO DAILY Metformin Hcl Er (Glucophage Er), 500 MG PO QPM Omeprazole (Prilosec), 20 MG PO QAM Tramadol HCl (Tramadol HCl), 50 MG PO QID Review of Systems See HPI for pertinent positives & negatives. A total of 10 systems reviewed and were otherwise negative. Physical Exam Vital Signs Date Time Temp Pulse Resp B/P (MAP) Pulse Ox O2 Delivery O2 Flow Rate FiO2 09/07/17 18:58 89 20 181/86 98 Room Air 09/07/17 17:37 92 09/07/17 17:03 36.7 95 16 189/102 97 Room Air General Appearance: WD/WN, + cachetic, + thin Head: normocephalic, atraumatic Eyes: normal inspection, PERRL, EOMI ENT: hearing grossly normal Neck: supple, no JVD Respiratory/Chest: lungs clear, normal breath sounds, no respiratory distress Cardiovascular: regular rate, rhythm, no murmur, normal peripheral pulses Abdomen/GI: normal bowel sounds, non tender, soft Back: no CVA tenderness, no muscle spasm, normal range of motion Extremities/Musculoskelatal: normal inspection, no pedal edema Neurologic/Psych: mink slicer II-XII nml as tested, no motor/sensory deficits, alert, normal mood/affect, normal reflexes, oriented x 3 Skin: no rash Diagnostics Laboratory Results Results Past 24 Hours Test 09/07/17 17:25 09/07/17 17:40 Range/Units Urine Color YELLOW Urine Appearance CLEAR CLEAR Urine pH 5.5 4.5-7.5 Urine Specific [place] 1.012 1.000-1.030 Urine Protein NEG NEG Urine Glucose (UA) NEG NEG Urine Ketones NEG NEG Urine Occult Blood NEG NEG Urine Nitrite NEG NEG Urine Bilirubin NEG NEG Urine Urobilinogen NEG NEG Urine Leukocyte Esterase NEG NEG Urine WBC (Auto) 1-5 0-5 /hpf Urine RBC (Auto) 0-4 0-4 /hpf Urine Hyaline Casts (Auto) 1-5 0-5 /lpf Urine Epithelial Cells (Auto) 10-20 0-5 /lpf Urine Bacteria (Auto) NEG NEG White Blood Count 9.86 4.8-10.8 K/uL Red Blood Count 5.02 4.2-5.4 M/uL Hemoglobin 13.1 12.0-16.0 g/dL Hematocrit 41.3 37-47 % Mean Corpuscular Volume 82.3 80-100 fL Mean Corpuscular Hemoglobin 26.1 25-34 pg Mean Corpuscular Hemoglobin Concent 31.7 32-36 g/dl Platelet Count 247 130-400 K/uL Mean Platelet Volume 8.3 7.4-10.4 fL Neutrophils (%) (Auto) 78.2 % Lymphocytes (%) (Auto) 13.7 % Monocytes (%) (Auto) 7.5 % Eosinophils (%) (Auto) 0.2 % Basophils (%) (Auto) 0.1 % Neutrophils # (Auto) 7.71 1.4-6.5 K/uL Lymphocytes # (Auto) 1.35 1.2-3.4 K/uL Monocytes # (Auto) 0.74 0.11-0.59 K/uL Eosinophils # (Auto) 0.02 0-0.5 K/uL Basophils # (Auto) 0.01 0-0.2 K/uL RDW Standard Deviation 41.3 36.4-46.3 fL RDW Coefficient of Variation 13.8 11.5-14.5 % Immature Granulocyte % (Auto) 0.3 % Immature Granulocyte # (Auto) 0.03 0.00-0.02 K/uL Prothrombin Time 10.8 9.0-12.0 SECONDS Prothromb Time International Ratio 1.0 0.9-1.1 Activated Partial Thromboplast Time 29.2 21.0-31.0 SECONDS Partial Thromboplastin Ratio 1.1 Sodium Level 139 136-145 mmol/L Potassium Level 3.8 3.5-5.1 mmol/L Chloride Level 103 98-107 mmol/L Carbon Dioxide Level 29 21-32 mmol/L Anion Gap 7.0 3-11 mmol/L Blood Urea Nitrogen 10 7-18 mg/dl Creatinine 0.74 0.60-1.20 mg/dl Est Creatinine Clear Calc Drug Dose 39.9 ml/min Estimated GFR () 85.6 Estimated GFR (Non- 73.9 BUN/Creatinine Ratio 13.8 10-20 Random Glucose 155 70-99 mg/dl Calcium Level 8.8 8.5-10.1 mg/dl Total Creatine Kinase 186 26-192 U/L Creatine Kinase MB 5.0 0.5-3.6 ng/ml Creatine Kinase MB Ratio 2.7 0-3.0 Troponin I 0.118 0-0.045 ng/ml Diagnostic Radiology PELVIS XRAY: FINDINGS: Osteopenia. Sacroiliac joints, hip joints, and pubic symphysis congruent. No acute fracture of the bony pelvis or femoral necks. Arcuate lines intact. Degenerative changes of lower lumbar spine. Atherosclerosis. Nonobstructive bowel gas pattern. IMPRESSION: No acute osseous injury of the pelvis. CXR IMPRESSION: 1. Hyperinflation suggests underlying emphysema. No focal infiltrate. 2. Mild cardiomegaly, unchanged. HEAD CT IMPRESSION: 1. No acute intracranial pathology. 2. Extensive chronic small vessel ischemic change. EKG Sinus rhythm with occasional Premature ventricular complexes Low voltage QRS Cannot rule out Anterior infarct (cited on or before 29-MAR-2017) Abnormal ECG When compared with ECG of 29-MAR-2017 15:50, Premature ventricular complexes are now Present Premature atrial complexes are no longer Present Questionable change in QRS axis Nonspecific T wave abnormality, worse in Anterior leads QTc 467 HR 89 Impression Assessment and Plan 87 yo F with severe arthritis who presents after a fall from standing, with elevated troponin Elevated troponin - Trend q6h - Telemetry monitoring - EKG in AM Fall/ Syncopal event - PT/OT evals - Monitor for orthostasis - ?Is pt safe at home alone, maybe needs a safety alarm. Shoulder pain - L Shoulder XRay to evaluate - Morphine for severe pain, 0.5mg IV q4h Arthritis - Tylenol q6h - Hold NSAIDs for now HTN - Continue Lisinopril 2.5mg - Continue Atorvastatin 10mg daily Hypothyroidism - Continue Synthroid Code status: DO NOT RESUSCITATE. She reports if anything happens to please call her friend Little, who will inform her family. Primary team tomorrow to consider filling out POLST form for her. VTE: SCDs, Heparin Dispo: Tele Resident Physician Supervision Note: I was present with Dr. Harris during the history and exam. I discussed the case with the resident and agree with the findings and plan as documented in the note. Any exceptions or clarifications are listed here: 87 y/o F Hx PAD, DM, HTN, HPL - presenting following a fall - does not recall events preceding fall although she does not believe she lost consciousness. Initial trop is elevated. AAO x 2 S1,2 +M CATB NT, ND No CCE RUE is tender with ROM limited due to pain P: Pt will be monitored on telemetry - serial cardiac enzymes requested , AM echo ordered Pt will need PT/OT eval for dispo - unclear if she can take care of herself at present HTN meds continued as prescribed Documented By: Juan Carlos Schulte VTE Prophylaxis VTE Risk Assessment Done? Y/N: Yes Risk Level: Moderate Resident Tracking Resident Involvement: Resident Care Provided Care Provided: Adult Hospital Medicine
[2017-09-07 20:39] VITALS: Ht 152.4 cm; Wt 38.0 kg
--- NOTE | 2017-09-07 21:26 | DIAGNOSTIC IMAGING REPORT ---
L SHOULDER MIN 2 VIEWS ROUTINE CLINICAL HISTORY: 87 years-old Female presenting with FALL, L SHOULDER PAIN. TECHNIQUE: Internal rotation, external rotation, and Grashey views of the left shoulder were obtained. COMPARISON: Chest x-ray from 03/29/2017. FINDINGS: Osteopenia suggested. Glenohumeral and acromioclavicular joints congruent. No acute fracture or malalignment. Cystic change suggested at the superior humeral head adjacent to the rotator cuff footplate, which could suggest chronic impingement. Regional soft tissues within normal limits. Visualized portion of the left lung clear. IMPRESSION: No acute osseous injury of the left shoulder. Electronically signed by: López Larson M.D. 09/07/2017 9:24 PM Dictated Date/Time: 09/07/2017 9:23 PM
[2017-09-07 21:32] VITALS: O2SAT 96
[2017-09-07 21:50] VITALS: BP 160/86; PULSE 80; TEMP 36.6; O2SAT 97
[2017-09-07 23:14] VITALS: BP 158/77; PULSE 75; TEMP 36.6; O2SAT 98
[2017-09-07] MEDS: MoRPHine SULFATE 2 MG/ML CARP IV PRN (23:27)
[2017-09-07] MEDS: HEPARIN SOD 5000 UNIT/0.5 ML CARP SQ SCH (23:31)
[2017-09-08] VITALS (7 sets, daily range): BP systolic 120–184; BP diastolic 55–91; PULSE 68–116; TEMP 36.4–36.9; O2SAT 95–97
[2017-09-08] MEDS: LEVOTHYROXINE 125 MCG TAB PO SCH (05:48)
--- NOTE | 2017-09-08 06:59 | Family Medicine Progress Note ---
Progress Note Date of Service Sep 08, 2017. Subjective Pt evaluation today including: conversation w/ patient, physical exam, chart review, lab review, review of studies, conversation w/ continuous improvement consultant, review of inpatient medication list Patient well, denies acute overnight events. States her pain is currently 2-3 out of 10, mostly in her left shoulder and a little bit in her hips. She states she is fine, and has friends checking in on her, and would like to go home. She denies having recurrent falls and states this fall was just an accident. She has chronic vertigo but states this fall was not due to dizziness. She is agreeable to physical therapy but is not currently interested in SNF. She previously had physical therapy at home twice weekly, and would like this again. currently denies any fevers, chest pain, shortness of breath, abdominal pain, nausea or vomiting. She has not ambulated yet. All Other Systems: Reviewed and Negative Objective Vital Signs Date Time Temp Pulse Resp B/P (MAP) Pulse Ox O2 Delivery O2 Flow Rate FiO2 09/08/17 04:24 36.4 116 20 144/80 (101) 97 Room Air 103 184/89 (120) 88 181/91 (121) 09/08/17 04:00 Room Air 09/08/17 00:00 Room Air 09/07/17 23:14 36.6 75 20 158/77 (104) 98 Room Air 09/07/17 21:50 36.6 80 16 160/86 (110) 97 Room Air 09/07/17 21:32 69 16 171/87 96 09/07/17 20:39 Room Air 09/07/17 18:58 89 20 181/86 98 Room Air 09/07/17 17:37 92 09/07/17 17:03 36.7 95 16 189/102 97 Room Air Physical Exam General Appearance: WD/WN, no apparent distress Eyes: normal inspection ENT: hearing grossly normal Neck: supple Respiratory/Chest: lungs clear, normal breath sounds, no respiratory distress, no accessory muscle use Cardiovascular: regular rate, rhythm, no murmur Abdomen: normal bowel sounds, non tender, soft Extremities: no pedal edema, no calf tenderness, + pertinent finding ( tenderness in the left shoulder with somewhat decreased range of motion) Neurologic/Psychiatric: alert, normal mood/affect Skin: normal color, warm/dry, no rash Laboratory Results Results Past 24 Hours Test 09/07/17 22:56 09/08/17 04:43 09/08/17 07:07 09/08/17 11:00 Range/Units Troponin I 0.142 0.095 0.057 0-0.045 ng/ml White Blood Count 10.65 4.8-10.8 K/uL Red Blood Count 4.94 4.2-5.4 M/uL Hemoglobin 12.4 12.0-16.0 g/dL Hematocrit 40.4 37-47 % Mean Corpuscular Volume 81.8 80-100 fL Mean Corpuscular Hemoglobin 25.1 25-34 pg Mean Corpuscular Hemoglobin Concent 30.7 32-36 g/dl RDW Standard Deviation 40.9 36.4-46.3 fL RDW Coefficient of Variation 13.5 11.5-14.5 % Platelet Count 271 130-400 K/uL Mean Platelet Volume 8.6 7.4-10.4 fL Sodium Level 140 136-145 mmol/L Potassium Level 3.6 3.5-5.1 mmol/L Chloride Level 104 98-107 mmol/L Carbon Dioxide Level 30 21-32 mmol/L Anion Gap 6.0 3-11 mmol/L Blood Urea Nitrogen 9 7-18 mg/dl Creatinine 0.68 0.60-1.20 mg/dl Est Creatinine Clear Calc Drug Dose 35.4 ml/min Estimated GFR () 92.4 Estimated GFR (Non- 79.8 BUN/Creatinine Ratio 12.5 10-20 Random Glucose 116 70-99 mg/dl Calcium Level 8.5 8.5-10.1 mg/dl Test 09/08/17 17:38 Range/Units Troponin I 0.056 0-0.045 ng/ml Assessment and Plan 87 year old female with pMHx of DM, PAD, arthritis, HTN, HLD admitted after a fall from standing with subsequent inability to get back up x 7 hours, with elevated troponin Fall/ Syncopal event - PT/OT evaluations state patient not safe for home immediately - Monitor for orthostasis Shoulder pain - Morphine 0.5mg IV q4h PRN pain Elevated troponin - troponin peaked at 0.146 and subsequently trending down - EKG in AM Arthritis - Tylenol q6h - Hold NSAIDs for now HTN - Continue Lisinopril 2.5mg - Continue Atorvastatin 10mg daily Hypothyroidism - TSH 2.51 (09/04/17) - Continue Synthroid VTE PPx: - SCDs - Heparin Code status: DO NOT RESUSCITATE. - POLST form filled - Patient requested catering service manager consult Resident Tracking Resident Involvement: Resident Care Provided Care Provided: Adult Hospital Medicine
[2017-09-08 07:25] LABS: HEMATOCRIT 40.4 % (37-47); MEAN CELL VOLUME 81.8 fL (80-100); MEAN CORPUSCULAR HEMOGLOBIN 25.1 pg (25-34); MEAN CORPUSCULAR HGB CONC 30.7 g/dl (32-36); MEAN PLATELET VOLUME 8.6 fL (7.4-10.4); PLATELET COUNT 271 K/uL (130-400); RED BLOOD COUNT 4.94 M/uL (4.2-5.4); WHITE BLOOD COUNT 10.65 K/uL (4.8-10.8)
[2017-09-08] MEDS: MoRPHine SULFATE 2 MG/ML CARP IV PRN ×3 (07:39→20:08)
[2017-09-08 07:55] LABS: BUN/CREATININE RATIO 12.5 (10-20); CALCIUM 8.5 mg/dl (8.5-10.1); CREATININE 0.68 mg/dl (0.60-1.20); POTASSIUM 3.6 mmol/L (3.5-5.1)
[2017-09-08] MEDS: ASPIRIN 81 MG ECTAB PO SCH (08:11)
[2017-09-08] MEDS: LISINOPRIL 2.5 MG TAB PO SCH (08:12)
[2017-09-08] MEDS: HEPARIN SOD 5000 UNIT/0.5 ML CARP SQ SCH ×2 (08:13→20:14)
[2017-09-08] MEDS ORDERED: POTASSIUM CITRATE 10 MEQ TAB PO ONE (11:15)
--- NOTE | 2017-09-08 12:52 | Clinical Documentation Query ---
QUERY 1 OF [address] DAS, In your clinical opinion is this patient being managed for: ( ) NSTEMI ( ) Not Agree ( ) Other explanation of clinical findings (Please Explain) ( ) Unable to determine (Please Define) ( ) Need to Discuss The medical record reflects the following clinical findings, treatment, and risk factors. Clinical Indicators:87 yo female presenting with a fall, generalized weakness and elevated troponin. EKG: Sinus rhythm with occas PVC's, and nonspecific T wave abnormality. Serial trops 0.118/0.145/0.095. Hypertensive 189/102 Treatment: tele, ECHO, continue ASA and lisinopril, serial trops Risk Factors: age, DM, HTN QUERY 2 OF 2 In your clinical opinion is this patient being managed for: ( ) severe protein-calorie malnutrition ( ) Not Agree ( ) Other explanation of clinical findings (Please Explain) ( ) Unable to determine (Please Define) ( ) Need to Discuss The medical record reflects the following clinical findings, treatment, and risk factors. Clinical Indicators: Pt is described as cachectic and thin. BMI of 16. Reported she does not eat well. Lives alone. Since Nov 2016, 9.9 Kg weight loss (21%) Treatment:regular diet, daily wts Risk Factors: age, arthritis/pain, lives alone Chronic Severe Malnutrition Criteria: (2 criteria needed) Energy intake: <75% of estimated energy requirement for > 1 month Wt loss: >5% in 1 month, > 7.5% in 3 months, >10% in 6 months, >20% in 1 year Body fat: severe loss of SQ fat from the orbits, triceps or fat overlying the ribs Muscle mass: severe muscle wasting at the temples, clavicles, shoulders, interosseous spaces, scapula, thigh, calf Fluid accumulation: severe localized or generalized edema of the extremities, vulva, scrotum-wt loss may be masked by edema Please clarify and document your clinical opinion in the progress notes and discharge summary. Terms such as "probable", "suspected", "likely", "questionable", "possible", or "still to be ruled out" are acceptable. IF IN AGREEMENT, YOU MUST DOCUMENT ABOVE DIAGNOSTIC STATEMENT IN DAILY PROGRESS NOTES AND DISCHARGE SUMMARY. This document is not part of the patient's record. Thank You, Kylah Chavez RN [phone]
--- NOTE | 2017-09-08 12:54 | Clinical Documentation Query ---
QUERY 1 OF [address] STEELE, In your clinical opinion is this patient being managed for: ( ) NSTEMI ( ) Not Agree ( ) Other explanation of clinical findings (Please Explain) ( ) Unable to determine (Please Define) ( ) Need to Discuss The medical record reflects the following clinical findings, treatment, and risk factors. Clinical Indicators:87 yo female presenting with a fall, generalized weakness and elevated troponin. EKG: Sinus rhythm with occas PVC's, and nonspecific T wave abnormality. Serial trops 0.118/0.145/0.095. Hypertensive 189/102 Treatment: tele, ECHO, continue ASA and lisinopril, serial trops Risk Factors: age, DM, HTN QUERY 2 OF 2 In your clinical opinion is this patient being managed for: ( ) severe protein-calorie malnutrition ( ) Not Agree ( ) Other explanation of clinical findings (Please Explain) ( ) Unable to determine (Please Define) ( ) Need to Discuss The medical record reflects the following clinical findings, treatment, and risk factors. Clinical Indicators: Pt is described as cachectic and thin. BMI of 16. Reported she does not eat well. Lives alone. Since Nov 2016, 9.9 Kg weight loss (21%) Treatment:regular diet, daily wts Risk Factors: age, arthritis/pain, lives alone Chronic Severe Malnutrition Criteria: (2 criteria needed) Energy intake: <75% of estimated energy requirement for > 1 month Wt loss: >5% in 1 month, > 7.5% in 3 months, >10% in 6 months, >20% in 1 year Body fat: severe loss of SQ fat from the orbits, triceps or fat overlying the ribs Muscle mass: severe muscle wasting at the temples, clavicles, shoulders, interosseous spaces, scapula, thigh, calf Fluid accumulation: severe localized or generalized edema of the extremities, vulva, scrotum-wt loss may be masked by edema Please clarify and document your clinical opinion in the progress notes and discharge summary. Terms such as "probable", "suspected", "likely", "questionable", "possible", or "still to be ruled out" are acceptable. IF IN AGREEMENT, YOU MUST DOCUMENT ABOVE DIAGNOSTIC STATEMENT IN DAILY PROGRESS NOTES AND DISCHARGE SUMMARY. This document is not part of the patient's record. Thank You, Kylah Chavez RN [phone]
--- NOTE | 2017-09-08 14:22 | ECHOCARDIOGRAM REPORT ---
*NOTICE TO RECEIVING REPUBLICAN AGENCY This information is strictly Confidential and protected under [place] law. [place] law prohibits you from making any further disclosure of this information unless further disclosure is expressly permitted by the written consent of the person to whom it pertains or is authorized by law. A general authorization for the release of medical or other information is not sufficient for this purpose. Hospital accepts no responsibility if the information is made available to any other person, INCLUDING THE PATIENT. Interpretation Summary * Name: DISHA ESCOBAR Study Date: 09/08/2017 12:09 PM BP: 154/71 mmHg * Patient Location: C.2T\S\S240\S\1 HR: 90 * : 1930 (M/d/yyy) Gender: Female Height: 60 in * Age: 87 yrs Ethnicity: [place] Weight: 81 lb * Ordering Physician: Tammy Redman. * Referring Physician: Self, Referred * Performed By: iMne Lozoya RDCS * * Reason For Study: Atrial Fibrillation * BSA: 1.3 m2 * History: HTN, DMII, TIA, Hyperlipidemia, Hypothyroidism, Peripheral Vascular Disease, Osteoporosis, Vitamin D Deficiency. * -- Conclusions -- * There is moderate concentric left ventricular hypertrophy. * The left ventricle is hyperdynamic. * Grade I diastolic dysfunction, (abnormal relaxation pattern). * Right ventricular systolic pressure is normal. * Compared to study from to 06/2015, there is little difference Procedure Details * A complete two-dimensional transthoracic echocardiogram was performed (2D, M-mode, Doppler and color flow Doppler). Left Ventricle * The left ventricle is normal in size. * There is moderate concentric left ventricular hypertrophy. * Ejection Fraction = 65-70%. * The left ventricle is hyperdynamic. * Grade I diastolic dysfunction, (abnormal relaxation pattern). * The left ventricular wall motion is normal. Right Ventricle * The right ventricle is normal in size and function. Atria * The left atrial size is normal. * Right atrial size is normal. Mitral Valve * The mitral valve leaflets appear thickened, but open well. * There is mild mitral annular calcification. * There is trace mitral regurgitation. Tricuspid Valve * The tricuspid valve is not well visualized, but is grossly normal. * There is trace tricuspid regurgitation. * Right ventricular systolic pressure is normal. Aortic Valve * The aortic valve is normal in structure and function. * No hemodynamically significant valvular aortic stenosis. * There is no significant aortic regurgitation. Great Vessels * The aortic root is normal size. Pericardium/Pleural * There is no pericardial effusion. Great Vessels * Normal inferior vena cava diameter and respiratory variation suggests normal central venous pressure. MMode 2D Measurements and Calculations IVSd 0.95 cm IVSs 1.2 cm LVIDd 3.6 cm LVIDs 2.2 cm LVPWd 0.92 cm LVPWs 1.4 cm IVS/LVPW 1.0 FS 39.3 % EDV(Teich) 54.6 ml ESV(Teich) 16.0 ml EF(Teich) 70.7 % EDV(cubed) 46.9 ml ESV(cubed) 10.5 ml EF(cubed) 77.6 % % IVS thick 23.7 % % LVPW thick 48.5 % LV mass(C)d 97.9 grams LV mass(C)dI 77.0 grams/m\S\2 LV mass(C)s 79.6 grams LV mass(C)sI 62.6 grams/m\S\2 SV(Teich) 38.6 ml SI(Teich) 30.4 ml/m\S\2 SV(cubed) 36.4 ml SI(cubed) 28.6 ml/m\S\2 Ao root diam 2.7 cm Ao root area 5.8 cm\S\2 ACS 1.2 cm LA dimension 2.7 cm LA/Ao 1.0 EDV(MOD-sp4) 51.0 ml ESV(MOD-sp4) 22.0 ml EF(MOD-sp4) 56.9 % EDV(MOD-sp2) 51.0 ml ESV(MOD-sp2) 19.0 ml EF(MOD-sp2) 62.7 % SV(MOD-sp4) 29.0 ml SI(MOD-sp4) 22.8 ml/m\S\2 SV(MOD-sp2) 32.0 ml SI(MOD-sp2) 25.2 ml/m\S\2 Doppler Measurements and Calculations MV E max ger 66.9 cm/sec MV A max ger 119.2 cm/sec MV E/A 0.56 MV dec time 0.21 sec Ao V2 max 136.9 cm/sec Ao max PG 7.5 mmHg Ao max PG (full) 4.2 mmHg LV V1 max PG 3.3 mmHg LV V1 max 90.6 cm/sec PA V2 max 125.1 cm/sec PA max PG 6.3 mmHg TR max ger 113.9 cm/sec
[2017-09-08] MEDS: ACETAMINOPHEN 325 MG TAB PO PRN (17:18)
[2017-09-09] VITALS (7 sets, daily range): BP systolic 127–188; BP diastolic 72–81; PULSE 74–86; TEMP 36.6–37.1; O2SAT 94–98
[2017-09-09] MEDS: ACETAMINOPHEN 325 MG TAB PO PRN ×3 (03:54→22:12)
[2017-09-09] MEDS: LEVOTHYROXINE 125 MCG TAB PO SCH (06:15)
[2017-09-09 07:11] LABS: BASO % 0.2 %; BASO ABS # 0.02 K/uL (0-0.2); COMPLETE YES; EOS % 0.6 %; HEMATOCRIT 38.3 % (37-47); IG% 0.3 %; LYMPH % 18.3 %; LYMPH ABS # 1.99 K/uL (1.2-3.4); MEAN CELL VOLUME 81.3 fL (80-100); MEAN CORPUSCULAR HEMOGLOBIN 25.9 pg (25-34); MEAN CORPUSCULAR HGB CONC 31.9 g/dl (32-36); MEAN PLATELET VOLUME 8.8 fL (7.4-10.4); MONO % 7.7 %; NEUT % 72.9 %; PLATELET COUNT 278 K/uL (130-400); RED BLOOD COUNT 4.71 M/uL (4.2-5.4); WHITE BLOOD COUNT 10.87 K/uL (4.8-10.8)
[2017-09-09 07:49] LABS: BUN/CREATININE RATIO 23.5 (10-20); CALCIUM 8.2 mg/dl (8.5-10.1); CREATININE 0.74 mg/dl (0.60-1.20); POTASSIUM 3.7 mmol/L (3.5-5.1)
[2017-09-09] MEDS: LISINOPRIL 2.5 MG TAB PO SCH (08:21)
[2017-09-09] MEDS: ASPIRIN 81 MG ECTAB PO SCH (08:21)
[2017-09-09] MEDS: HEPARIN SOD 5000 UNIT/0.5 ML CARP SQ SCH ×2 (08:23→20:47)
[2017-09-09] MEDS: MoRPHine SULFATE 2 MG/ML CARP IV PRN ×2 (10:02→18:43)
--- NOTE | 2017-09-09 16:23 | Family Medicine Progress Note ---
Progress Note Date of Service Sep 09, 2017. Subjective Pt evaluation today including: conversation w/ patient, physical exam, chart review, lab review Pain: c/o left shoulder pain PO Intake: good Voiding: no voiding problems Complains of pain in the left shoulder on palpation. Denies any chest pain, shortness of breath, palpitations or dizziness Constitutional: No fever, No chills Eyes: No worsening of vision ENT: No hearing loss Respiratory: No cough, No sputum, No wheezing Cardiovascular: No chest pain, No orthopnea, No PND Abdomen: No pain, No nausea, No vomiting, No diarrhea Musculoskeletal: + joint pain (lefgt shoulder pain) Female : No dysuria Neurologic: No memory loss, No paralysis Psychiatric: No depression symptoms Medications Current Inpatient Medications Medications (Trade) Dose Ordered Sig/Jonathan Route Start Time Stop Time Status Last Admin Dose Admin Acetaminophen (Tylenol Tab) 650 mg Q4H PRN PO 09/07/17 20:15 10/07/17 20:14 09/09/17 14:09 650 MG Polyethylene (Miralax Powder Packet) 17 gm DAILY PRN PO 09/07/17 20:15 10/07/17 20:14 Ondansetron HCl (Zofran Inj) 4 mg Q6H PRN IV 09/07/17 20:15 10/07/17 20:14 09/09/17 09:30 4 MG Heparin Sodium (Porcine) (Heparin Sq 5000 Unit/0.5ml) 5,000 unit Q12 SQ 09/07/17 22:00 10/07/17 21:59 09/09/17 08:23 5,000 UNIT Aspirin (Ecotrin Tab) 81 mg QAM PO 09/08/17 09:00 10/08/17 08:59 09/09/17 08:21 81 MG Levothyroxine Sodium (Synthroid Tab) 125 mcg DAILYBB PO 09/08/17 06:00 10/08/17 05:59 09/09/17 06:15 125 MCG Lisinopril (Zestril Tab) 2.5 mg DAILY PO 09/08/17 09:00 10/08/17 08:59 09/09/17 08:21 2.5 MG Morphine Sulfate (MoRPHine SULFATE INJ) 0.5 mg Q6H PRN IV 09/07/17 20:15 09/21/17 20:14 09/09/17 10:02 0.5 MG Objective Vital Signs Date Time Temp Pulse Resp B/P (MAP) Pulse Ox O2 Delivery O2 Flow Rate FiO2 09/09/17 15:28 37.1 75 20 142/72 (95) 94 Room Air 09/09/17 13:59 81 146/72 (96) 86 127/72 (90) 09/09/17 12:21 36.6 82 16 162/79 (106) 94 Room Air 09/09/17 12:00 Room Air 09/09/17 08:01 36.6 74 16 170/76 (107) 96 Room Air 09/09/17 08:00 Room Air 09/09/17 04:00 Room Air 09/09/17 03:37 36.8 82 18 149/81 (103) 98 Room Air 09/08/17 23:59 Room Air 09/08/17 23:26 36.4 74 19 170/82 (111) 97 Room Air 09/08/17 20:00 Room Air 09/08/17 19:05 36.6 70 18 120/55 (76) 95 Room Air 09/08/17 16:58 92 165/82 (109) 89 138/79 (98) 68 135/84 (101) Physical Exam General Appearance: WD/WN, no apparent distress Eyes: normal inspection ENT: hearing grossly normal Neck: supple Respiratory/Chest: chest non-tender, lungs clear, normal breath sounds, no respiratory distress Cardiovascular: regular rate, rhythm Abdomen: non tender, soft Extremities: + pertinent finding (left mid upper arm tenderness) Neurologic/Psychiatric: alert, normal mood/affect, oriented x 3 Skin: normal color Laboratory Results 09/09/17 06:11 Red Blood Count 4.71, Mean Corpuscular Volume 81.3, Mean Corpuscular Hemoglobin 25.9, Mean Corpuscular Hemoglobin Concent 31.9, Mean Platelet Volume 8.8, Neutrophils (%) (Auto) 72.9, Lymphocytes (%) (Auto) 18.3, Monocytes (%) (Auto) 7.7, Eosinophils (%) (Auto) 0.6, Basophils (%) (Auto) 0.2, Neutrophils # (Auto) 7.93, Lymphocytes # (Auto) 1.99, Monocytes # (Auto) 0.84, Eosinophils # (Auto) 0.06, Basophils # (Auto) 0.02 09/09/17 06:11 Test 09/08/17 17:38 09/09/17 06:11 Troponin I 0.056 ng/ml (0-0.045) White Blood Count 10.87 K/uL (4.8-10.8) Red Blood Count 4.71 M/uL (4.2-5.4) Hemoglobin 12.2 g/dL (12.0-16.0) Hematocrit 38.3 % (37-47) Mean Corpuscular Volume 81.3 fL (80-100) Mean Corpuscular Hemoglobin 25.9 pg (25-34) Mean Corpuscular Hemoglobin Concent 31.9 g/dl (32-36) Platelet Count 278 K/uL (130-400) Mean Platelet Volume 8.8 fL (7.4-10.4) Neutrophils (%) (Auto) 72.9 % Lymphocytes (%) (Auto) 18.3 % Monocytes (%) (Auto) 7.7 % Eosinophils (%) (Auto) 0.6 % Basophils (%) (Auto) 0.2 % Neutrophils # (Auto) 7.93 K/uL (1.4-6.5) Lymphocytes # (Auto) 1.99 K/uL (1.2-3.4) Monocytes # (Auto) 0.84 K/uL (0.11-0.59) Eosinophils # (Auto) 0.06 K/uL (0-0.5) Basophils # (Auto) 0.02 K/uL (0-0.2) RDW Standard Deviation 41.2 fL (36.4-46.3) RDW Coefficient of Variation 13.6 % (11.5-14.5) Immature Granulocyte % (Auto) 0.3 % Immature Granulocyte # (Auto) 0.03 K/uL (0.00-0.02) Anion Gap 7.0 mmol/L (3-11) Est Creatinine Clear Calc Drug Dose 33.3 ml/min Estimated GFR () 85.6 Estimated GFR (Non- 73.9 BUN/Creatinine Ratio 23.5 (10-20) Calcium Level 8.2 mg/dl (8.5-10.1) Assessment and Plan 87 year old female with pMHx of DM, PAD, arthritis, HTN, HLD admitted after a fall from standing with subsequent inability to get back up x 7 hours, with elevated troponin Fall likely secondary to deconditioning - Head CT negative for intracranial bleed - Pelvis x-ray, shoulder x-ray negative for fractures or dislocations - Chest x-ray suggestive of mild cardiomegaly and emphysema - PT/OT - PT recommended inpatient rehabilitation but patient is adamant that she would like to go home with home PT Shoulder pain - Morphine 0.5mg IV q4h PRN pain Elevated troponin - Troponins downtrending Arthritis - Tylenol q6h HTN - Continue Lisinopril 2.5mg - Continue Atorvastatin 10mg daily Hypothyroidism - TSH 2.51 (09/04/17) - Continue Synthroid DVT prophylaxis - SCDs - Heparin Code status: DO NOT RESUSCITATE. - POLST form filled - Patient requested diesel engine assembler consult Disposition: Transferred to [facility] Resident Tracking Resident Involvement: Resident Care Provided Care Provided: Adult [facility] Medicine Reviewed: Pt Seen/Exam by Me History Resident Physician Supervision Note: I interviewed and examined the patient. Discussed with Dr. Elmore and agree with findings and plan as documented in the note. Any exceptions or clarifications are listed here: Patient still with some pain in the left side of body from her fall, is determined to go home and is absolutely refusing rehabilitation placement. No chest pain or shortness of breath, is tolerating by mouth and doing well otherwise. Her friend and hydroelectric machinery mechanic visits her daily is at the bedside and states she is at her baseline Vitals reviewed No acute distress, frail, sitting in bed Regular rate and rhythm, no murmurs gallops rubs Lungs clear to auscultation bilaterally no wheezes crackles or rhonchi Abdomen positive bowel sounds soft nontender nondistended Extremities-positive tenderness to palpation over anterior left shoulder, otherwise no pain with palpation over hip knee and ankle on left side No edema in the legs 87-year-old female here with mechanical fall, no signs of infection or intracerebral process, no fractures. Telemetry stable and echo with no wall motion abnormalities, with demand ischemia likely from being on the ground for multiple hours. This chronic diastolic CHF not in acute decompensation. -Okay to transfer to [facility], it seems that PT/OT are recommending SNF for rehabilitation placement, but patient is refusing. -We'll plan to discharge tomorrow if pain is controlled and she is more stable on her feet Documented By: Faina Alvarenga
[2017-09-10] MEDS: ACETAMINOPHEN 325 MG TAB PO PRN ×2 (01:53→05:48)
[2017-09-10] MEDS: LEVOTHYROXINE 125 MCG TAB PO SCH (05:41)
[2017-09-10 06:43] LABS: BASO % 0.2 %; BASO ABS # 0.02 K/uL (0-0.2); COMPLETE YES; EOS % 0.6 %; HEMATOCRIT 36.8 % (37-47); IG% 0.2 %; LYMPH % 23.3 %; LYMPH ABS # 1.96 K/uL (1.2-3.4); MEAN CELL VOLUME 81.6 fL (80-100); MEAN CORPUSCULAR HEMOGLOBIN 26.2 pg (25-34); MEAN CORPUSCULAR HGB CONC 32.1 g/dl (32-36); MEAN PLATELET VOLUME 8.3 fL (7.4-10.4); MONO % 8.2 %; NEUT % 67.5 %; PLATELET COUNT 245 K/uL (130-400); RED BLOOD COUNT 4.51 M/uL (4.2-5.4)
[2017-09-10 07:11] LABS: BUN/CREATININE RATIO 20.6 (10-20); CALCIUM 8.3 mg/dl (8.5-10.1); CREATININE 0.75 mg/dl (0.60-1.20); POTASSIUM 3.9 mmol/L (3.5-5.1)
[2017-09-10 07:31] VITALS: BP_SYST 188; BP_SYST 195; BP_DIAS 89; BP_DIAS 92; PULSE 87; TEMP 36.5; O2SAT 98
[2017-09-10] MEDS: ASPIRIN 81 MG ECTAB PO SCH (08:00)
[2017-09-10] MEDS: LISINOPRIL 2.5 MG TAB PO SCH (08:01)
[2017-09-10] MEDS: HEPARIN SOD 5000 UNIT/0.5 ML CARP SQ SCH (08:02)
[2017-09-10] MEDS ORDERED: HydrALAZINE HCL 20 MG/ML VIAL IV. PRN (09:45)
[2017-09-10 10:16] VITALS: BP 172/90; PULSE 77
[2017-09-10 14:20] VITALS: BP 158/81; PULSE 83
--- NOTE | 2017-09-10 14:39 | Discharge Instructions ---
Discharge Instructions Date of Service Sep 10, 2017. Admission Reason for Admission: Elevated Troponin, Syncope Discharge Discharge Diagnosis / Problem: fall Discharge Goals Goal(s): Decrease discomfort, Improve function Activity Recommendations Activity Limitations: per Instructions/Follow-up section . Instructions / Follow-Up Instructions / Follow-Up You were admitted to the hospital after you had a fall at home and were unable to get back up she. During your hospitalization, you had a CAT scan of your head, x-rays of your pelvis, shoulder and chest which were negative for any fractures. Your heart enzymes were slightly elevated but had trended down on monitoring. You received physical therapy and occupational therapy evaluation who recommended supervision around the clock for at least 72 hours initially to see if you could function safely. also recommended home health physical therapy evaluation for safety Shoulder pain and arthritis: - You may use Tylenol as needed for pain control . - Continue home physical therapy - Your tramadol has been discontinued as it might increase your risk for fall -High Blood pressure - Continue Lisinopril 2.5mg - Continue Atorvastatin 10mg daily Hypothyroidism - Continue Synthroid Please follow up with Dr. Josue in 2-3 days Current Hospital Diet Patient's current hospital diet: Regular Diet Discharge Diet Recommended Diet: Regular Diet Pending Studies Studies pending at discharge: no Medical Emergencies . Who to Call and When: Medical Emergencies: If at any time you feel your situation is an emergency, please call 911 immediately. . Non-Emergent Contact Non-Emergency issues call your: Primary Care Provider . . "Provider Documentation" section prepared by Taisha Elmore. . VTE Core Measure Inpt VTE Proph given/why not?: Unfractionated heparin SQ Resident Tracking Resident Involvement: Resident Care Provided Care Provided: Adult Hospital Medicine
[2017-09-10 15:03] VITALS: BP 151/82; PULSE 74; TEMP 36.8; O2SAT 95
[2017-09-10 15:18] VITALS: BP 151/82; PULSE 74; TEMP 36.8; O2SAT 95
--- NOTE | 2017-09-10 19:06 | Discharge Summary ---
Discharge Summary Date of Service Sep 10, 2017. 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 * The left ventricle is hyperdynamic. * Grade I diastolic dysfunction, (abnormal relaxation pattern). * Right ventricular systolic pressure is normal. * Compared to study from to 06/2015, there is little difference (Faina Alvarenga MD) Medication Reconciliation Continued Medications: Aspirin Enteric Coated (Ecotrin Or Generic) 81 Mg Tab 81 MG PO QAM, TAB Atorvastatin (Atorvastatin Calcium) 10 Mg Tab 10 MG PO HOLD HOLD THIS MEDICATION UNTIL OTHERWISE DIRECTED TO TAKE BY Cholecalciferol (Vitamin D 1000 Unit) 1,000 Unit Cap 1000 INTER.UNIT PO QAM, CAP Ferrous Sulfate (Iron) Unknown Strength Tab 1 TAB PO DAILY Ibuprofen (Advil) 200 Mg Tab 400 MG PO HS, TAB Levothyroxine Sodium (Levothyroxine Sodium) 125 Mcg Tab 125 MCG PO DAILY Lisinopril (Lisinopril) 2.5 Mg Tab 2.5 MG PO DAILY Metformin Hcl Er (Glucophage Er) 500 Mg Tab 500 MG PO QPM, TAB TAKE WITH EVENING MEAL Omeprazole (Prilosec) 20 Mg Cap 20 MG PO QAM, CAP Discontinued Medications: Tramadol HCl (Tramadol HCl) 50 Mg Tab 50 MG PO QID Discharge Exam Review of Systems: Constitutional: No fever, No chills Eyes: No worsening of vision ENT: No hearing loss Respiratory: No cough Cardiovascular: No chest pain, No orthopnea Abdomen: No pain, No nausea, No vomiting Musculoskeletal: + joint pain (Left shoulder pain) Genitourinary - Female: No dysuria, No urinary frequency Psychiatric: No depression symptoms Endocrine: No fatigue Physical Exam: General Appearance: WD/WN Eyes: normal inspection ENT: hearing grossly normal Neck: supple Respiratory/Chest: lungs clear, normal breath sounds, no respiratory distress Cardiovascular: regular rate, rhythm Abdomen / GI: normal bowel sounds, non tender, soft Extremities: + pertinent finding (Tenderness on palpation of Left-sided mid upper arm) Neurologic/Psychiatric: alert, normal mood/affect, oriented x 3 (Taisha Elmore MD) Hospital Course 87-year-old female presented to the ER after sustaining a fall at her home while trying to use a refrigerator. She was unable to get up on her own and was found a few hours later. In the ER, she was evaluated with head CT Which was negative for any intracranial bleeding, pelvis x-ray and shoulder x-ray which were all negative for any fractures or dislocations. She was admitted to telemetry due to an elevated troponin on presentation, However serial troponins were down trending. She was initially being managed with half a milligram of morphine as needed for pain but later her pain was controlled appropriately only with Tylenol She was evaluated by physical therapy who recommended a short inpatient rehabilitation due to her poor safety awareness which the patient declined. She has a sister who lives in [place] and her kids are out of state. She lives alone and is often checked by a good friend, Little. 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 This was discussed with her sister and her close friend Little about the concern for fall in the future. Her friend, and was going to monitor her closely until her sister arrived in couple days. They were going to make arrangements for home PT. Her tramadol has been discontinued due to fall risk and she was recommended to use Tylenol as needed for pain control . Total Time Spent: Less than 30 minutes This includes examination of the patient, discharge planning, medication reconciliation, and communication with other providers. (Taisha Elmore MD) Total Time Spent: Greater than 30 minutes (Faina Alvarenga MD) Discharge Instructions Please refer to the electronic Patient Visit Report (Discharge Instructions) for additional information. (Taisha Elmore MD) Follow-Up Follow-up with PCPIn about 2-3 days (Taisha Elmore MD) Additional Copies To Bi Josue M.D. Resident Tracking Resident Involvement: Resident Care Provided Care Provided: Adult [facility] (Taisha Elmore MD) Reviewed: Pt Seen/Exam by Me (Faina Alvarenga MD) History Resident Physician Supervision Note: I interviewed and examined the patient. Discussed with Dr. Elmore and agree with findings and plan as documented in the note. Any exceptions or clarifications are listed here: Patient states the Tylenol she was given this morning worked great for her pain in the shoulder. She has no other complaints and feels she is ready for discharge to home Vitals reviewed No acute distress, frail, sitting in bed Regular rate and rhythm, no murmurs gallops rubs Lungs clear to auscultation bilaterally no wheezes crackles or rhonchi Abdomen positive bowel sounds soft nontender nondistended Extremities-positive tenderness to palpation over anterior left shoulder, otherwise no pain with palpation over hip knee and ankle on left side No edema in the legs 87-year-old female here with mechanical fall, no signs of infection or intracerebral process, no fractures. Telemetry stable and echo with no wall motion abnormalities, with demand ischemia likely from being on the ground for multiple hours. Her chronic diastolic CHF is not in acute decompensation. -Advised discontinuation tramadol, home physical therapy, Tylenol only as needed for pain -Follow up with PCP Documented By: Faina Alvarenga (Faina Alvarenga MD)
== END 2017-09-10 16:15 | disposition home health service (06) | DRG 948 ==
LOC: EDBD 16:53 → C.EDA 16:53 → C.2T 20:33 → ENRESERV 20:56 → C.4E 09-09 18:58
PROVIDERS: ADMIT Internal Medicine; ATTEND Family Medicine
DX: R53.1 Weakness (principal); I24.8 Other forms of acute ischemic heart disease; I50.32 Chronic diastolic (congestive) heart failure; R64 Cachexia; Z68.1 Body mass index [BMI] 19.9 or less, adult; S40.012A Contusion of left shoulder, initial encounter; R29.6 Repeated falls; I11.0 Hypertensive heart disease with heart failure; M19.90 Unspecified osteoarthritis, unspecified site; E11.51 Type 2 diabetes mellitus with diabetic peripheral angiopathy without gangrene; E89.0 Postprocedural hypothyroidism; J45.909 Unspecified asthma, uncomplicated; E78.5 Hyperlipidemia, unspecified; E55.9 Vitamin D deficiency, unspecified; M81.0 Age-related osteoporosis without current pathological fracture; Z51.81 Encounter for therapeutic drug level monitoring; Z79.899 Other long term (current) drug therapy; Z79.84 Long term (current) use of oral hypoglycemic drugs; Z79.82 Long term (current) use of aspirin; Z66 Do not resuscitate; Z86.73 Personal history of transient ischemic attack (TIA), and cerebral infarction without residual deficits; Z60.2 Problems related to living alone; W18.30XA Fall on same level, unspecified, initial encounter; Y93.G1 Activity, food preparation and clean up; Y92.000 Kitchen of unspecified non-institutional (private) residence as the place of occurrence of the external cause; Y99.8 Other external cause status

== ENCOUNTER 2017-09-21 15:03 | Emergency (ER) | payer OTHER, MEDICARE ==
[~2017-09-21] VITALS: Ht 152.4 cm; Wt 46.9 kg
[~2017-09-21 15:03] MED LIST changes: +ASPI81TA21 PO; -DSY/150 PO; +IBUP-1277 PO; +LEVO125T5 PO; -LEVO125T72 PO; +LPT10 PO; +LSN25 PO; +OMEP20CA9 PO; -SIMV-151 PO; -TRIM100T20 PO; -ULT50 PO
[2017-09-21 15:20] VITALS: TEMP 36.6; Ht 152.4 cm; Wt 46.9 kg
--- NOTE | 2017-09-21 15:38 | EMERGENCY ROOM VISIT NOTE ---
History Report prepared by Jourdan: Reginald Mike Under the Supervision of: Dr. Andrea Roberts M.D. First contact with patient: 15:11 Stated Complaint: WEAKNESS History of Present Illness The patient is an 87 year old female who presents to the Emergency Room with complaints of constant weakness starting this morning. The patient states that she wet to go to the bathroom, and she was very weak, and she slowly fell to the ground. She states that she has Home Health, though she is trying to get placed somewhere else. She states that she has chills a lot, though she denies any fevers. She denies any abdominal pain, headache, and she states that nothing currently hurts. The patient additionally notes that she was recently in the hospital after a fall. Source of History: patient, EMS Onset: this morning Position: other (global) Quality: other (weakness) Timing: constant Associated Symptoms: + chills, No fevers, No headache, No abdominal pain Review of Systems See HPI for pertinent positives & negatives. A total of 10 systems reviewed and were otherwise negative. Past Medical & Surgical Medical Problems: (1) Asthma, Unspecified (2) Cataract Nos (3) Diverticulosis Colon (W/O Ment Of Hemorrhage) (4) Elevated troponin (5) Hypertension Nos (6) Old Myocardial Infarct (7) Osteoporosis Nos (8) Postsurgical Hypothyroid (9) Syncope Old medical records were reviewed. Nurse's notes were reviewed and I agree with. Family History Patient reports no known family medical history. Social History Smoking Status: Never Smoker Alcohol Use: none Drug Use: none Marital Status: Housing Status: lives alone Occupation Status: retired Current/Historical Medications Scheduled Aspirin Enteric Coated (Ecotrin Or Generic), 81 MG PO QAM Atorvastatin (Atorvastatin Calcium), 10 MG PO HOLD Cholecalciferol (Vitamin D 1000 Unit), 1,000 INTER.UNIT PO QAM Ferrous Sulfate (Iron), 1 TAB PO DAILY Ibuprofen (Advil), 400 MG PO HS Levothyroxine Sodium (Levothyroxine Sodium), 125 MCG PO DAILY Lisinopril (Lisinopril), 2.5 MG PO DAILY Metformin Hcl Er (Glucophage Er), 500 MG PO QPM Omeprazole (Prilosec), 20 MG PO QAM Scheduled PRN Tramadol HCl (Tramadol HCl), 50 MG PO TID PRN for Pain Allergies Coded Allergies: Sulfamethoxazole w/Trimethoprim (Verified Allergy, Severe, ANAPHYLAXIS, 11/12) lips swell Aluminum Hydroxide (Verified Allergy, Unknown, UNKNOWN, 01/08/17) Calcium Carbonate (Verified Allergy, Unknown, UNKNOWN, 01/08/17) INFO FROM [facility] Gabapentin (Verified Allergy, Unknown, UNKNOWN, 01/08/17) INFO FROM [facility] Magnesium Hydroxide (Verified Allergy, Unknown, UNKNOWN, 01/08/17) Propoxyphene (Verified Allergy, Unknown, UNKNOWN, 01/08/17) Simethicone (Verified Allergy, Unknown, UNKNOWN, 01/08/17) Famotidine (Verified Adverse Reaction, Severe, GI SYMPTOMS, 01/08/17) diarrhea Sertraline (Verified Adverse Reaction, Severe, SHORTNESS OF BREATH, ) no sob,causes dizziness Meclizine (Verified Adverse Reaction, Intermediate, SHORTNESS OF BREATH, ) increased fatigue, no sob Ranitidine (Verified Adverse Reaction, Intermediate, GI SYMPTOMS, 01/08/17) constipated Sulfamethoxazole (Verified Adverse Reaction, Intermediate, SWOLLEN LIPS, PRURITIS, 01/08/17) SWOLLEN LIPS, SLIGHT PRURITIS. See ADR documentation. Verapamil (Verified Adverse Reaction, Intermediate, SHORTNESS OF BREATH, ) no sob,has headaches Albuterol (Verified Adverse Reaction, Mild, SHORTNESS OF BREATH, 01/08/17) no sob, causes cough Alendronate (Verified Adverse Reaction, Mild, UPSET STOMACH, 01/08/17) UPSET STOMACH Ipratropium (Verified Adverse Reaction, Mild, SHORTNESS OF BREATH, 01/08/17 ) no sob, causes cough Lecithin (Verified Adverse Reaction, Mild, SHORTNESS OF BREATH, 05/03/16) no sob, causes cough Physical Exam Vital Signs Date Time Temp Pulse Resp B/P (MAP) Pulse Ox O2 Delivery O2 Flow Rate FiO2 09/21/17 19:41 85 18 132/72 98 Room Air 09/21/17 17:41 71 18 165/68 98 Room Air 09/21/17 16:55 70 09/21/17 15:20 36.6 76 18 118/54 94 Room Air 09/21/17 15:18 81 Physical Exam General: Chronically-ill appearing older female in no acute distress. Pain with movement. HEENT: Normal cephalic atraumatic. Pupils are equal round and reactive to light. Extraocular movements are intact. Oropharynx is pink with moist mucous membranes. No swelling of the mouth lips or tongue. Neck: Supple with a midline trachea. No meningeal signs or stiffness, no JVD or bruits. No Stridor. Chest: Clear to auscultation bilaterally. No wheezes or rhonchi. No increased work of breathing. Heart: regular rate and rhythm. Abdomen: Soft nontender, nondistended without rebound guarding or rigidity. Extremities: No cyanosis clubbing or edema. No calf tenderness or assymetry Spine/Back. Non tender to palpation. No CVA tenderness Skin: Good turgor without rashes. Neurologic exam: Cranial nerves two through 12 are intact. Motor and sensation are intact and symmetrical throughout. Medical Decision & Procedures ER Provider Diagnostic Interpretation: Radiology results as stated below per my review and radiologist interpretation: CT HEAD WITHOUT CONTRAST (CT) CLINICAL HISTORY: Weakness. Multiple falls. COMPARISON STUDY: 09/07/2017 TECHNIQUE: Axial CT of the brain is performed from the vertex to the skull base. IV contrast was not administered for this examination. A dose lowering technique was utilized adhering to the principles of ALARA. CT DOSE: 638.56 mGycm FINDINGS: No intra or extra-axial mass lesions are visualized. There is no CT evidence of acute cortical infarction. There is no evidence of midline shift. There is no acute hemorrhage. No calvarial fractures are visualized. There are moderate white matter hypodensities likely on a small vessel basis. There is no evidence of pathologic ventricular dilatation. There is a stable right maxillary sinus polyp/retention cyst. IMPRESSION: No acute intracranial findings Electronically signed by: Donald Dukes M.D. 09/21/2017 4:43 PM Dictated Date/Time: 09/21/2017 4:41 PM CHEST ONE VIEW PORTABLE HISTORY: 87 years-old Female CHEST PAIN acute atypical chest pain with weakness COMPARISON: Chest radiograph 09/07/2017 TECHNIQUE: Portable upright AP view of the chest FINDINGS: The patient is rotated and side bent to the right. Cardiac silhouette is mildly enlarged. Atherosclerosis of the aorta. Lungs are hyperinflated and hyperlucent suggesting emphysema. Surgical clips project over the right lung apex. Mild biapical pleural-parenchymal scarring. No pneumothorax, pleural effusion, focal airspace consolidation or overt pulmonary edema. Linear retrocardiac opacity suggests atelectasis or scarring. Bones are grossly intact. Surgical clips of the upper abdomen suggest prior cholecystectomy. IMPRESSION: Linear retrocardiac subsegmental opacity suggests atelectasis or scarring. No acute cardiopulmonary process. The above report was generated using voice recognition software. It may contain grammatical, syntax or spelling errors. Electronically signed by: Julio Cesar Aburto M.D. 09/21/2017 3:46 PM Dictated Date/Time: 09/21/2017 3:45 PM Laboratory Results 09/21/17 16:00 Red Blood Count 4.29, Mean Corpuscular Volume 82.3, Mean Corpuscular Hemoglobin 26.1, Mean Corpuscular Hemoglobin Concent 31.7, Mean Platelet Volume 8.3, Neutrophils (%) (Auto) 75.2, Lymphocytes (%) (Auto) 15.7, Monocytes (%) (Auto) 7.8, Eosinophils (%) (Auto) 0.8, Basophils (%) (Auto) 0.2, Neutrophils # (Auto) 7.13, Lymphocytes # (Auto) 1.49, Monocytes # (Auto) 0.74, Eosinophils # (Auto) 0.08, Basophils # (Auto) 0.02 09/21/17 16:00 Test 09/21/17 16:00 09/21/17 16:08 09/21/17 17:40 White Blood Count 9.49 K/uL (4.8-10.8) Red Blood Count 4.29 M/uL (4.2-5.4) Hemoglobin 11.2 g/dL (12.0-16.0) Hematocrit 35.3 % (37-47) Mean Corpuscular Volume 82.3 fL (80-100) Mean Corpuscular Hemoglobin 26.1 pg (25-34) Mean Corpuscular Hemoglobin Concent 31.7 g/dl (32-36) Platelet Count 357 K/uL (130-400) Mean Platelet Volume 8.3 fL (7.4-10.4) Neutrophils (%) (Auto) 75.2 % Lymphocytes (%) (Auto) 15.7 % Monocytes (%) (Auto) 7.8 % Eosinophils (%) (Auto) 0.8 % Basophils (%) (Auto) 0.2 % Neutrophils # (Auto) 7.13 K/uL (1.4-6.5) Lymphocytes # (Auto) 1.49 K/uL (1.2-3.4) Monocytes # (Auto) 0.74 K/uL (0.11-0.59) Eosinophils # (Auto) 0.08 K/uL (0-0.5) Basophils # (Auto) 0.02 K/uL (0-0.2) RDW Standard Deviation 43.4 fL (36.4-46.3) RDW Coefficient of Variation 14.5 % (11.5-14.5) Immature Granulocyte % (Auto) 0.3 % Immature Granulocyte # (Auto) 0.03 K/uL (0.00-0.02) Prothrombin Time 10.6 SECONDS (9.0-12.0) Prothromb Time International Ratio 1.0 (0.9-1.1) Activated Partial Thromboplast Time 29.6 SECONDS (21.0-31.0) Partial Thromboplastin Ratio 1.1 Anion Gap 6.0 mmol/L (3-11) Est Creatinine Clear Calc Drug Dose 32.5 ml/min Estimated GFR () 66.7 Estimated GFR (Non- 57.5 BUN/Creatinine Ratio 26.8 (10-20) Calcium Level 8.9 mg/dl (8.5-10.1) Total Bilirubin 0.2 mg/dl (0.2-1) Direct Bilirubin < 0.1 mg/dl (0-0.2) Aspartate Amino Transf (AST/SGOT) 11 U/L (15-37) Alanine Aminotransferase (ALT/SGPT) 14 U/L (12-78) Alkaline Phosphatase 73 U/L (45-117) Total Protein 6.7 gm/dl (6.4-8.2) Albumin 2.7 gm/dl (3.4-5.0) Lipase 116 U/L (73-393) Bedside Troponin I < 0.030 ng/ml (0-0.045) Urine Color YELLOW Urine Appearance CLEAR (CLEAR) Urine pH 5.5 (4.5-7.5) Urine Specific Christmas 1.014 (1.000-1.030) Urine Protein NEG (NEG) Urine Glucose (UA) NEG (NEG) Urine Ketones NEG (NEG) Urine Occult Blood NEG (NEG) Urine Nitrite NEG (NEG) Urine Bilirubin NEG (NEG) Urine Urobilinogen NEG (NEG) Urine Leukocyte Esterase NEG (NEG) Laboratory studies as stated above per my review. Medications Administered Medications (Trade) Dose Ordered Sig/Jonathan Route Start Time Stop Time Status Last Admin Dose Admin Acetaminophen (Tylenol Tab) 650 mg NOW STAT PO 09/21/17 19:11 09/21/17 19:12 DC 09/21/17 19:19 650 MG ECG Indication: weakness Rate (beats per minute): 69 Rhythm: normal sinus Findings: PAC, no acute ischemic change, other (Low voltage) Comparison ECG Date: 09/07/17 Change: PAC are now present ED Course 151: Past medical records reviewed. The patient was evaluated in room C1, and a complete history and physical examination were performed. 1753: I reassessed the patient, and she was doing well. We are trying to get the patient into rehab. The patient's family is currently out of town, though they are going to be coming in. 1910: Acetaminophen 650mg PO 1948: I reevaluated the patient, and she was accepted to [facility]. She will be discharged. Medical Decision Differentials include, but are not limited to; weakness, trauma, arrhythmia, ACS , electrolyte or metabolic abnormality This patient comes in as described above. She was brought in by EMS. She does suffer from frequent falls she fell again today. She does have home nursing but not [id number] they apparently been trying to get her placed and the patient was to be placed in a halfway type setting. She denies any injury she has been feeling weak and does not feel she is safe at home and is scared to go home. IV access established, EKG, chest x-ray, head CT, and multiple blood testing was obtained to rule out anything particular etiology for her symptoms. I did also have her case management team evaluate the situation as it sounds like the placement is already in progress. She has no apparent injuries from falling. Her EKG does not suggest acute coronary syndrome or significant arrhythmia. Troponin is not elevated. She has no acute electrolyte or metabolic abnormalities. CAT scan of her head is unremarkable and she has no acute neurologic deficits. I did have our case management rn evaluate the patient and she is trying to get her into rehabilitation tonight . She's talked to the family as well. They may ultimately put her in a skilled facility as well but this would give her time to get rehabilitation and give the family time to make the arrangements while she is in a safe environment. Medication Reconcilliation Current Medication List: was personally reviewed by me Blood Pressure Screening Patient's blood pressure: Normal blood pressure Impression Primary Impression: Weakness Scribe Attestation The scribe's documentation has been prepared under my direction and personally reviewed by me in its entirety. I confirm that the note above accurately reflects all work, treatment, procedures, and medical decision making performed by me. Departure Information Dispostion Other ([facility]) Referrals Bi Josue M.D. (PCP)
--- NOTE | 2017-09-21 15:48 | DIAGNOSTIC IMAGING REPORT ---
CHEST ONE VIEW PORTABLE HISTORY: 87 years-old Female CHEST PAIN acute atypical chest pain with weakness COMPARISON: Chest radiograph 09/07/2017 TECHNIQUE: Portable upright AP view of the chest FINDINGS: The patient is rotated and side bent to the right. Cardiac silhouette is mildly enlarged. Atherosclerosis of the aorta. Lungs are hyperinflated and hyperlucent suggesting emphysema. Surgical clips project over the right lung apex. Mild biapical pleural-parenchymal scarring. No pneumothorax, pleural effusion, focal airspace consolidation or overt pulmonary edema. Linear retrocardiac opacity suggests atelectasis or scarring. Bones are grossly intact. Surgical clips of the upper abdomen suggest prior cholecystectomy. IMPRESSION: Linear retrocardiac subsegmental opacity suggests atelectasis or scarring. No acute cardiopulmonary process. The above report was generated using voice recognition software. It may contain grammatical, syntax or spelling errors. Electronically signed by: Julio Cesar Aburto M.D. 09/21/2017 3:46 PM Dictated Date/Time: 09/21/2017 3:45 PM
[2017-09-21 16:14] LABS: BASO % 0.2 %; BASO ABS # 0.02 K/uL (0-0.2); COMPLETE YES; EOS % 0.8 %; HEMATOCRIT 35.3 % (37-47); IG% 0.3 %; LYMPH % 15.7 %; LYMPH ABS # 1.49 K/uL (1.2-3.4); MEAN CELL VOLUME 82.3 fL (80-100); MEAN CORPUSCULAR HEMOGLOBIN 26.1 pg (25-34); MEAN CORPUSCULAR HGB CONC 31.7 g/dl (32-36); MEAN PLATELET VOLUME 8.3 fL (7.4-10.4); MONO % 7.8 %; NEUT % 75.2 %; PLATELET COUNT 357 K/uL (130-400); RED BLOOD COUNT 4.29 M/uL (4.2-5.4); WHITE BLOOD COUNT 9.49 K/uL (4.8-10.8)
[2017-09-21 16:29] LABS: PARTIAL THROMBOPLASTIN RATIO 1.1; PROTHROMBIN TIME (PATIENT) 10.6 SECONDS (9.0-12.0)
[2017-09-21 16:37] LABS: BUN/CREATININE RATIO 26.8 (10-20); CALCIUM 8.9 mg/dl (8.5-10.1); CREATININE 0.91 mg/dl (0.60-1.20); POTASSIUM 3.9 mmol/L (3.5-5.1)
[2017-09-21 16:40] LABS: ALKALINE PHOSPHATASE 73 U/L (45-117); ALT/SGPT 14 U/L (12-78); AST/SGOT 11 U/L (15-37)
--- NOTE | 2017-09-21 16:44 | DIAGNOSTIC IMAGING REPORT ---
CT HEAD WITHOUT CONTRAST (CT) CLINICAL HISTORY: Weakness. Multiple falls. COMPARISON STUDY: 09/07/2017 TECHNIQUE: Axial CT of the brain is performed from the vertex to the skull base. IV contrast was not administered for this examination. A dose lowering technique was utilized adhering to the principles of ALARA. CT DOSE: 638.56 mGycm FINDINGS: No intra or extra-axial mass lesions are visualized. There is no CT evidence of acute cortical infarction. There is no evidence of midline shift. There is no acute hemorrhage. No calvarial fractures are visualized. There are moderate white matter hypodensities likely on a small vessel basis. There is no evidence of pathologic ventricular dilatation. There is a stable right maxillary sinus polyp/retention cyst. IMPRESSION: No acute intracranial findings Electronically signed by: Donald Dukes M.D. 09/21/2017 4:43 PM Dictated Date/Time: 09/21/2017 4:41 PM
[2017-09-21] MEDS ORDERED: SIMV-151 PO (16:51)
[2017-09-21] MEDS ORDERED: ULT50 PO (17:04)
[2017-09-21 18:04] LABS: URINE APPEARANCE CLEAR (CLEAR); URINE BILIRUBIN NEG (NEG); URINE COLOR YELLOW; URINE NITRITE NEG (NEG); URINE PH 5.5 (4.5-7.5); URINE SPECIFIC GRAVITY 1.014 (1.000-1.030); UROBILINOGEN NEG (NEG)
[2017-09-21 18:12] LABS: MANUAL MICROSCOPIC REQUIRED? NO; REVIEW REQ? NO
[2017-09-21] MEDS ORDERED: ACETAMINOPHEN 325 MG TAB PO STA (19:11)
[2017-09-21 20:28] VITALS: BP 128/69; PULSE 84; O2SAT 98
== END 2017-09-21 20:32 | disposition other institution (70) ==
LOC: EDBD 15:03 → C.EDC 15:03
DX: R53.1 Weakness (principal); W19.XXXA Unspecified fall, initial encounter; Y92.019 Unspecified place in single-family (private) house as the place of occurrence of the external cause; J45.909 Unspecified asthma, uncomplicated; H26.9 Unspecified cataract; K57.90 Diverticulosis of intestine, part unspecified, without perforation or abscess without bleeding; I10 Essential (primary) hypertension; I25.2 Old myocardial infarction; M81.0 Age-related osteoporosis without current pathological fracture; E89.0 Postprocedural hypothyroidism; Z79.82 Long term (current) use of aspirin; Z79.899 Other long term (current) drug therapy

== ENCOUNTER → 2017-10-10 | Outpatient (CLI) | payer OTHER, MEDICARE ==
[~2017-10-10] MED LIST changes: +ULT50 PO
== END ==
LOC: C.LABUPNIT 09:34
PROVIDERS: ATTEND Nurse Practitioner Family
DX: R19.7 Diarrhea, unspecified (principal)

== ENCOUNTER → 2018-02-02 | Outpatient (CLI) | payer OTHER, MEDICARE | END | disposition home or self-care (01) | LOC: C.LABSPEC 17:09 | PROVIDERS: ATTEND Podiatrist Foot & Ankle Surgery | DX: L97.529 Non-pressure chronic ulcer of other part of left foot with unspecified severity (principal) ==